=== PATIENT | female | born 1995 | race Caucasian/White ===

== ENCOUNTER 2017-10-14 01:37 | Emergency (ER) | payer OTHER ==
[~2017-10-14] VITALS: Ht 165.1 cm; Wt 72.6 kg
--- OUTSIDE RECORDS SUMMARY | 2017-10-14 01:43 | XMS REPORT ---
Author OTF Nguyen [facility] [place] eClinicalWorks Address Unknown Phone Unavailable Care Team Providers Care Hygiene Assistant Name Role Phone OTF DASILVA CP Unavailable Allergies, Adverse Reactions, Alerts Substance Reaction Event Type N.K.D.A. Info Not Available Non Drug Allergy Problems Problem Type Condition Code Onset Dates Condition Status Problem Irregular menses 626.4 Active Assessment Irregular menstrual bleeding N92.6 Active Problem Irregular menstrual bleeding N92.6 Active Assessment control counseling Z30.9 Active Medications No Known Medications Procedures Procedure Coding System Code Date Office Visit, Est Pt., Level 3 CPT-4 35254 Oct 09, 2015 DEPO PROVERA (150 MG/ML) CPT-4 J1050 Oct 09, 2015 URINE TEST CPT-4 71726 Oct 09, 2015 THER/PROPH/DIAG INJ, SC/IM CPT-4 59943 Oct 09, 2015 Vital Signs Date/Time: Oct 09, 2015 Temperature 98.2 F Weight 128.6 lbs Height 63.5 in BMI 22.42 Index Blood Pressure Diastolic 76 mmHg Blood Pressure Systolic 128 mmHg Cardiac Monitoring Heart Rate 96 bpm BMIPercentile 63.27 % Wt Percentile 58.93 % Results Name Result Date Reference Range Unit Abnormality Flag TEST, URINE (IN HOUSE) ----RESULTS NEGATIVE [id number] ----Lot # [id number] ----Control + [id number] ----Exp date [id number] Summary Purpose eClinicalWorks Submission
--- OUTSIDE RECORDS SUMMARY | 2017-10-14 01:43 | XMS REPORT ---
Author OTF Nguyen [facility] eClinicalWorks Address Unknown Phone Unavailable Care Team Providers Care Rivet Driver Name Role Phone OTF DASILVA CP Unavailable Allergies, Adverse Reactions, Alerts Substance Reaction Event Type N.K.D.A. Info Not Available Non Drug Allergy Problems Problem Type Condition ICD-9 Code Onset Dates Condition Status Assessment Irregular menses 626.4 Active Problem Irregular menses 626.4 Active Medications Medication Code System Code Instructions Start Date End Date Status Dosage Tri-Sprintec [facility] [address]-76 0.18/0.215/0.25 MG-35 MCG Orally Once a day Jul 15, 2015 1 tablet Procedures Procedure Coding System Code Date Office Visit, Est Pt., Level 3 CPT-4 59272 Jul 15, 2015 URINE TEST CPT-4 27683 Jul 15, 2015 CHORIONIC GONADOTROPIN ASSAY CPT-4 88923 Jul 15, 2015 Vital Signs Date/Time: Jul 15, 2015 Temperature 97.7 F BMIPercentile 76.63 % Weight 137.3 lbs Height 63.5 in BMI 23.94 Index Blood Pressure Diastolic 70 mmHg Blood Pressure Systolic 110 mmHg Cardiac Monitoring Heart Rate 90 bpm Wt Percentile 72.86 % Ht Percentile 39.11 % Results Name Result Date Reference Range Unit Abnormality Flag TEST, URINE (IN HOUSE) Summary Purpose eClinicalWorks Submission
--- OUTSIDE RECORDS SUMMARY | 2017-10-14 01:43 | XMS REPORT ---
Author BERNADETTE Curry Organization eClinicalWorks Address Unknown Phone Unavailable Care Team Providers Care Stage Driver Name Role Phone BERNADETTE KANG CP Unavailable Allergies, Adverse Reactions, Alerts Substance Reaction Event Type N.K.D.A. Info Not Available Non Drug Allergy Problems Problem Type Condition Code Onset Dates Condition Status Problem Menorrhagia with irregular cycle N92.1 Active Problem Irregular menstrual bleeding N92.6 Active Problem Abnormal uterine bleeding N93.9 Active Assessment Abnormal uterine bleeding N93.9 Active Medications Medication Code System Code Instructions Start Date End Date Status Dosage Promethazine HCl [facility] [address]-30 12.5 MG Orally every 6 hrs May 29, 2016 1-2 tablet as needed for nausea Ortho-Cyclen (28) [facility] [address]-33 0.25-35 MG-MCG Orally Once a day May 29, 2016 1 tab Procedures Procedure Coding System Code Date Office Visit, Est Pt., Level 3 CPT-4 04405 Aug 28, 2016 Vital Signs Date/Time: Aug 28, 2016 Cardiac Monitoring Heart Rate 70 bpm Weight 136 lbs Height 64 in Wt Percentile 66.81 % BMI 23.34 Index Blood Pressure Diastolic 74 mmHg Blood Pressure Systolic 112 mmHg BMIPercentile 69.06 % Results No Known Results Summary Purpose eClinicalWorks Submission
--- OUTSIDE RECORDS SUMMARY | 2017-10-14 01:43 | XMS REPORT ---
Author RIDGE Ndiaye [facility] [place] eClinicalWorks Address Unknown Phone Unavailable Care Team Providers Care Starcher And Tenter Range Feeder Name Role Phone RIDGE OCAMPO CP Unavailable Allergies No Known Allergies Problems Problem Type Condition Code Onset Dates Condition Status Problem Irregular menstrual bleeding N92.6 Active Assessment Menorrhagia with irregular cycle N92.1 Active Problem Menorrhagia with irregular cycle N92.1 Active Medications No Known Medications Results No Known Results Summary Purpose eClinicalWorks Submission
--- OUTSIDE RECORDS SUMMARY | 2017-10-14 01:43 | XMS REPORT ---
Author RIDGE Ndiaye [facility] eClinicalWorks Address Unknown Phone Unavailable Care Team Providers Care Profiler Operator Name Role Phone RIDGE OCAMPO CP Unavailable Allergies No Known Allergies Problems Problem Type Condition Code Onset Dates Condition Status Problem Irregular menstrual bleeding N92.6 Active Assessment Menorrhagia with irregular cycle N92.1 Active Problem Menorrhagia with irregular cycle N92.1 Active Medications No Known Medications Results No Known Results Summary Purpose eClinicalWorks Submission
--- OUTSIDE RECORDS SUMMARY | 2017-10-14 01:43 | XMS REPORT ---
Author SINCERE Chávez [facility] eClinicalWorks Address Unknown Phone Unavailable Care Team Providers Care Councilman Name Role Phone SINCERE NICHOLAS CP Unavailable Allergies No Known Allergies Problems Problem Type Condition Code Onset Dates Condition Status Problem Irregular menstrual bleeding N92.6 Active Assessment Encounter for Depo-Provera contraception Z30.42 Active Problem Menorrhagia with irregular cycle N92.1 Active Medications No Known Medications Procedures Procedure Coding System Code Date THER/PROPH/DIAG INJ, SC/IM CPT-4 79790 Jun 12, 2016 URINE TEST CPT-4 28022 Jun 12, 2016 DEPO PROVERA (150 MG/ML) CPT-4 J1050 Jun 12, 2016 Results No Known Results Summary Purpose eClinicalWorks Submission
--- OUTSIDE RECORDS SUMMARY | 2017-10-14 01:43 | XMS REPORT ---
Author Author RIDGE OCAMPO [facility] Address [address] [place] [address] Care Team Providers Care Dress Designer Name Role Phone RIDGE OCAMPO Unavailable PROBLEMS Type Condition ICD9-CM Code [id number] Code Onset Dates Condition Status SNOMED Code Problem Menorrhagia with irregular cycle N92.1 Active 545141355 Problem Irregular menstrual bleeding N92.6 Active [id number] ALLERGIES Unknown Allergies SOCIAL HISTORY No smoking Hx information available PLAN OF CARE VITAL SIGNS MEDICATIONS Unknown Medications RESULTS No Results PROCEDURES No Known procedures IMMUNIZATIONS No Known Immunizations
--- OUTSIDE RECORDS SUMMARY | 2017-10-14 01:43 | XMS REPORT | Continuity of Care Document ---
Author Author [facility] Organization [facility] Address Unknown Phone Unavailable Allergies Active Description Code Type Severity Reaction Onset Reported/Identified Relationship to Patient Clinical Status Yes NKANo Known Allergies NKA Miscellaneous Allergy Unknown N/ A 12/03/2006 Medications Problems Date Dx Coded Attending Type Code Diagnosis Diagnosed By 12/30/2016 KETTY HI, WILLIS Irwin Ot N93.9 ABNORMAL UTERINE AND VAGINAL BLEEDING, U 04/17/2017 WILLIS HDEZ MD Ot N93.9 ABNORMAL UTERINE AND VAGINAL BLEEDING, U 10/14/2017 WILLIS HDEZ MD Ot N93.9 ABNORMAL UTERINE AND VAGINAL BLEEDING, U Procedures Results Encounters ACCT No. Visit Date/Time Discharge Status Pt. Type Provider Facility Loc./Unit Complaint [id number] 01/03/2016 10:41:00 2015 23:59:59 CLS Outpatient WILLIS HDEZ MD [facility] RAD ABNORMAL UTERINE BLEEDING [id number] 10/14/2017 01:40:00 ACT Emergency SID HERZOG DO [facility] ER RT ANKLE PAIN
--- OUTSIDE RECORDS SUMMARY | 2017-10-14 01:43 | XMS REPORT ---
Author RIDGE Ndiaye [facility] eClinicalWorks Address Unknown Phone Unavailable Care Team Providers Care Operations Vice President Name Role Phone RIDGE OCAMPO CP Unavailable Allergies No Known Allergies Problems Problem Type Condition Code Onset Dates Condition Status Problem Irregular menstrual bleeding N92.6 Active Assessment Menorrhagia with irregular cycle N92.1 Active Problem Menorrhagia with irregular cycle N92.1 Active Medications No Known Medications Procedures Procedure Coding System Code Date BLOOD CLOT FACTOR VIII TEST CPT-4 00423 Jun 12, 2016 BLOOD CLOT FACTOR VIII TEST CPT-4 38865 Jun 12, 2016 THROMBOPLASTIN TIME, PARTIAL CPT-4 09336 Jun 12, 2016 COMPLETE CBC W/AUTO DIFF WBC CPT-4 13520 Jun 12, 2016 BLOOD CLOT FACTOR VIII TEST CPT-4 41585 Jun 12, 2016 VENIPUNCT, ROUTINE* CPT-4 05772 Jun 12, 2016 PROTHROMBIN TIME CPT-4 53846 Jun 12, 2016 Results No Known Results Summary Purpose eClinicalWorks Submission
--- OUTSIDE RECORDS SUMMARY | 2017-10-14 01:43 | XMS REPORT ---
Author RIDGE Ndiaye [facility] eClinicalWorks Address Unknown Phone Unavailable Care Team Providers Care Forming Roll Operator Name Role Phone RIDGE OCAMPO CP Unavailable Allergies, Adverse Reactions, Alerts Substance Reaction Event Type N.K.D.A. Info Not Available Non Drug Allergy Problems Problem Type Condition Code Onset Dates Condition Status Problem Irregular menstrual bleeding N92.6 Active Assessment Menorrhagia with irregular cycle N92.1 Active Problem Menorrhagia with irregular cycle N92.1 Active Medications Medication Code System Code Instructions Start Date End Date Status Dosage Ferrous Sulfate [facility] [address]-01 325 (65 Fe) MG Orally Once a day 1 tablet Ortho-Cyclen (28) [facility] [address]-42 0.25-35 MG-MCG Orally Once a day May 29, 2016 5 quwns6u, 7whjul5d, 8aphpn7g, 1gxbnu4t, then 1 tab until one week after bleeding stops Depo-Provera [facility] [address]-81 150 MG/ML Intramuscular 1 ml Promethazine HCl [facility] [address]-31 12.5 MG Orally every 6 hrs May 29, 2016 1-2 tablet as needed for nausea Procedures Procedure Coding System Code Date URINE TEST CPT-4 37196 May 29, 2016 Office Visit, Est Pt., Level 3 CPT-4 11094 May 29, 2016 Vital Signs Date/Time: May 29, 2016 Cardiac Monitoring Heart Rate 80 bpm Weight 135.7 lbs Height 64 in Wt Percentile 67.41 % BMI 23.29 Index Blood Pressure Diastolic 64 mmHg Blood Pressure Systolic 108 mmHg BMIPercentile 69.28 % Results No Known Results Summary Purpose eClinicalWorks Submission
--- OUTSIDE RECORDS SUMMARY | 2017-10-14 01:43 | XMS REPORT ---
Author BERNADETTE Curry Organization eClinicalWorks Address Unknown Phone Unavailable Care Team Providers Care Housing Management Officer Name Role Phone BERNADETTE KANG CP Unavailable Allergies, Adverse Reactions, Alerts Substance Reaction Event Type N.K.D.A. Info Not Available Non Drug Allergy Problems Problem Type Condition Code Onset Dates Condition Status Problem Irregular menstrual bleeding N92.6 Active Problem Menorrhagia with irregular cycle N92.1 Active Medications Medication Code System Code Instructions Start Date End Date Status Dosage Depo-Provera [facility] [address]-87 150 MG/ML Intramuscular 1 ml Results No Known Results Summary Purpose eClinicalWorks Submission
--- OUTSIDE RECORDS SUMMARY | 2017-10-14 01:43 | XMS REPORT ---
Author OTF Nguyen [facility] eClinicalWorks Address Unknown Phone Unavailable Care Team Providers Care Coffee Roaster Name Role Phone OTF DASILVA CP Unavailable Allergies, Adverse Reactions, Alerts Substance Reaction Event Type N.K.D.A. Info Not Available Non Drug Allergy Problems Problem Type Condition Code Onset Dates Condition Status Assessment Irregular menses 626.4 Active Problem Irregular menses 626.4 Active Medications Medication Code System Code Instructions Start Date End Date Status Dosage Ortho-Cyclen (28) [facility] [address]-82 0.25-35 MG-MCG Orally Once a day Aug 1 tablet Procedures Procedure Coding System Code Date Office Visit, Est Pt., Level 3 CPT-4 66741 Aug 22, 2015 Vital Signs Date/Time: Aug 22, 2015 Cardiac Monitoring Heart Rate 88 bpm Temperature 98.1 F Weight 130.1 lbs Wt Percentile 61.85 % Blood Pressure Diastolic 64 mmHg Blood Pressure Systolic 118 mmHg Results No Known Results Summary Purpose eClinicalWorks Submission
[2017-10-14] MEDS ORDERED: NORG1TAB6 (01:51)
[2017-10-14] MEDS ORDERED: RX-NAPROXEN (NAPROSYN) 250 MG TAB PPK#4 PO STA (02:04)
[2017-10-14] MEDS ORDERED: NAPR500T4 PO (02:12)
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
[2017-10-14 02:22] VITALS: BP 132/78
--- NOTE | 2017-10-14 07:17 | Diagnostic Imaging Report ---
INDICATION: Injury. Pain. Comparison: None Findings: 3 views of the right ankle are obtained. There is a minimally displaced oblique fracture through the mid to distal diaphysis of the fifth metatarsal with approximately 1-2 mm of dorsal displacement of the distal fragment. This is best seen on the lateral view. No additional fracture or osseous destructive process is seen. Alignment at the ankle joint appears preserved. There is a large amount of lateral soft tissue swelling noted. Impression: There is a minimally displaced distal fifth metatarsal fracture. Dictated by: Dictated on workstation # [id number]
== END 2017-10-14 02:22 | disposition home or self-care (01) ==
LOC: EDUNIT# 01:37 → ER 01:40
DX: S93.401A Sprain of unspecified ligament of right ankle, initial encounter (principal); T59.811A Toxic effect of smoke, accidental (unintentional), initial encounter; J70.5 Respiratory conditions due to smoke inhalation; X58.XXXA Exposure to other specified factors, initial encounter
CPT/HCPCS: 73610; 99283

== ENCOUNTER → 2018-07-08 | Outpatient (CLI) | payer MEDICAID ==
[~2018-07-08] MED LIST: NAPR-915 PO; NORG1TAB6
--- NOTE | 2018-07-08 12:33 | Diagnostic Imaging Report ---
PROCEDURE: US OB SINGLE FETUS <14 WKS. TECHNIQUE: Multiple real-time grayscale images were obtained over the gravid uterus in various projections. INDICATION: Size and dates. FINDINGS: Samuel intrauterine gestation measures 9 week 3 days for sonographic date of confinement 02/07/2019. Heart rate 176 beats per minute. Amniotic fluid volume unremarkable. No evidence for a betty-sac hemorrhage. Left ovary normal, the right could not be identified, no adnexal lesion or free fluid. IMPRESSION: Early Samuel viable IUP measures 9 weeks 3 days. No pathological finding identified. Dictated by: Dictated on workstation # [id number]
== END ==
LOC: RAD 10:51
PROVIDERS: ATTEND Family Medicine
DX: O26.841 Uterine size-date discrepancy, first trimester (principal); Z3A.09 9 weeks gestation of pregnancy
CPT/HCPCS: 76801

== ENCOUNTER 2019-02-01 18:34 | Inpatient (IN) | payer MEDICAID ==
[~2019-02-01] VITALS: Ht 165.1 cm; Wt 99.3 kg
--- OUTSIDE RECORDS SUMMARY | 2019-02-01 18:39 | XMS REPORT ---
Author Author LUZ LIND [facility] Address [address] [place] [address] Care Team Providers Care At Risk Specialist Name Role Phone LUZ LIND Unavailable PROBLEMS Type Condition ICD9-CM Code UVB76-KR Code Onset Dates Condition Status SNOMED Code Problem Non-seasonal allergic rhinitis due to pollen J30.1 Active 17067957 ALLERGIES No Known Allergies ENCOUNTERS Encounter Location Date Diagnosis [place] [address] [place] [id number] [place] [address] 28004- 2586 Nov, [place] [address] 07621- 7284 Oct, Second trimester Z34.92 [place] [address] [place] [id number] [place] [address] 26577- 4170 Sep, 18 weeks gestation of Z3A.18 [place] [address] [place] [id number] [place] [address] 08779- 1678 Sep, [place] [address] [place] [id number] [place] [address] 72609- 3620 Sep, 18 weeks gestation of Z3A.18 [place] [address] [place] [id number] [place] [address] 56152- 1399 Aug, Second trimester Z34.92 and Encounter for immunization Z23 [place] [address] [place] [id number] [place] [address] 56491- 9871 Jul, First trimester Z34.91 [place] [address] [place] [id number] [place] [address] 55795- 1704 Jun, Normal , first Z34.00 and care, first in first trimester Z34.01 [place] [address] [place] [id number] [place] [address] 36133- 8249 16 Jun, 2018 [place] [address] [place] [id number] [place] [address] 75083- 1441 14 Jun, 2018 First trimester Z34.91 and Mouth pain K13.79 [place] [address] [place] [id number] [place] [address] 07650- 2398 14 Jun, 2018 [place] [address] 60162- 2714 08 Jun, 2018 Encounter for test, result unknown Z32.00 [place] [address] 87644- 2789 13 May, 2018 control counseling Z30.09 and Sexually transmitted disease exposure Z20.2 [place] [address] [place] [id number] [place] [address] 52593- 1128 13 Jan, 2018 Acute bacterial conjunctivitis of right eye H10.31 ; Sore throat J02.9 ; Non-seasonal allergic rhinitis due to pollen J30.1 and Oral contraceptive pill surveillance Z30.41 [place] [address] [place] [id number] [place] [address] 56332- 9862 03 Feb, 2017 control counseling Z30.09 [place] [address] [place] [id number] [place] [address] 17417- 3113 28 Jan, 2017 [place] [address] [place] [id number] [place] [address] 02321- 6996 Aug, Abnormal uterine bleeding N93.9 [place] [address] [place] [id number] [place] [address] 70645- 8942 Aug, [place] [address] [place] [id number] [place] [address] 37330- 5733 20 Jul, 2016 Irregular menstrual bleeding N92.6 and Menorrhagia with irregular cycle N92.1 [place] [address] [place] [address] 99927- 7035 15 Jul, 2016 [place] [address] [place] [id number] [address] 0272 Jun, Menorrhagia with irregular cycle N92.1 [place] [address] [place] [id number] [place] [address] 58680- 1677 Jun, Menorrhagia with irregular cycle N92.1 [place] [address] [place] [id number] [place] [address] 97031- 2076 Jun, Encounter for Depo-Provera contraception Z30.42 [place] [address] [place] [id number] [place] [address] 94185- 4082 Jun, Menorrhagia with irregular cycle N92.1 [place] [address] [place] [id number] [place] [address] 71819- 4652 May, Menorrhagia with irregular cycle N92.1 [place] [address] [place] [id number] [place] [address] 16306- 3757 Apr, Irregular menses N92.6 [facility] [address] [place] [address] 95048 -8922 March, Conjunctivitis, unspecified conjunctivitis type, unspecified laterality H10.9 [place] [address] [place] [address] 95811- 8122 March, Encounter for Depo-Provera contraception Z30.42 [facility] [id number] [place] [address] 33266 -5436 Jan, Stye H00.019 [facility] [address] [place] [address] 44362- 3713 Jan, [place] [address] [place] [id number] [place] [address] 66863- 6357 Dec, Encounter for Depo-Provera contraception Z30.42 [place] [address] [place] [address] 83991- 3442 Oct, Irregular menstrual bleeding N92.6 and control counseling Z30.9 [place] [address] [facility] [id number] [address]- 5423 Aug, Irregular menses 626.4 [facility] [address] [facility] [id number] [address] Jul, Irregular menses 626.4 IMMUNIZATIONS No Known Immunizations SOCIAL HISTORY Never Assessed REASON FOR VISIT OB 4wk f/u, ob urine dip in second trimester , noticed more nose bleeds - instructed pt to try using a humidifier in the home--Joy Pollock RN PLAN OF CARE Activity Details Follow Up 4 Weeks Reason: VITAL SIGNS Height 64 in 2018-10-07 Weight 185 lbs 2018-10-07 Temperature 98.0 degrees Fahrenheit 2018-10-07 Heart Rate 80 bpm 2018-10-07 Respiratory Rate 18 2018-10-07 BMI 31.755 kg/m2 2018-10-07 Blood pressure systolic 112 mmHg 2018-10-07 Blood pressure diastolic 74 mmHg 2018-10-07 MEDICATIONS Medication Instructions Dosage Frequency Start Date End Date Duration Status Gummies/DHA & FA 0.4-32.5 MG Active RESULTS Name Result Date Reference Range UA OB DIP (IN HOUSE) 2018-10-07 Glucose Negative Protein Negative PROCEDURES Procedure Date Ordered Result Body Site URINE-NO MICRO Oct 07, 2018 INSTRUCTIONS MEDICATIONS ADMINISTERED No Known Medications MEDICAL (GENERAL) HISTORY Type Description Date Surgical History No Surgical history information
--- OUTSIDE RECORDS SUMMARY | 2019-02-01 18:39 | XMS REPORT ---
Author Author LUZ LIND [facility] Address [address] [place] [address] Care Team Providers Care Gis Instructor Name Role Phone LUZ LIND Unavailable PROBLEMS Type Condition ICD9-CM Code [id number] Code Onset Dates Condition Status SNOMED Code Problem Non-seasonal allergic rhinitis due to pollen J30.1 Active [id number] ALLERGIES No Information ENCOUNTERS Encounter Location Date Diagnosis [place] [address] 82670- 8775 05 Oct, 2018 [place] [address] 88842- 7500 2018 18 weeks gestation of Z3A.18 [place] [address] [place] [id number] [place] [address] 77212- 9169 Sep, [place] [address] 35351- 9914 Sep, 18 weeks gestation of Z3A.18 [place] [address] [place] [id number] [place] [address] 58808- 5750 10 Aug, 2018 Second trimester Z34.92 and Encounter for immunization Z23 [place] [address] [place] [id number] [place] [address] 27185- 6668 Jul, First trimester Z34.91 [place] [address] 46784- 6103 Jun, Normal , first Z34.00 and care, first in first trimester Z34.01 [place] [address] [place] [id number] [place] [address] 27401- 2897 Jun, [place] [address] [place] [address]- 4995 14 Jun, 2018 First trimester Z34.91 and Mouth pain K13.79 [place] [address] [place] [id number] [place] [address] 16213- 1435 14 Jun, 2018 [place] [address] [place] [id number] [place] [address] 78378- 0790 08 Jun, 2018 Encounter for test, result unknown Z32.00 [place] [address] 89221- 3817 13 May, 2018 control counseling Z30.09 and Sexually transmitted disease exposure Z20.2 [place] [address] 41627- 9326 13 Jan, 2018 Acute bacterial conjunctivitis of right eye H10.31 ; Sore throat J02.9 ; Non-seasonal allergic rhinitis due to pollen J30.1 and Oral contraceptive pill surveillance Z30.41 [place] [address] 73881- 9004 03 Feb, 2017 control counseling Z30.09 [place] [address] [place] [id number] [place] [address] 51774- 3599 Jan, [place] [address] [place] [id number] [place] [address] 76044- 6778 Aug, Abnormal uterine bleeding N93.9 [place] [address] [place] [id number] [place] [address] 75219- 2263 Aug, [place] [address] [place] [id number] [place] [address] 22636- 7781 Jul, Irregular menstrual bleeding N92.6 and Menorrhagia with irregular cycle N92.1 [place] [address] [place] [id number] [place] [address] 39357- 8936 Jul, [place] [address] [place] [id number] [place] [address] 74840- 4173 Jun, Menorrhagia with irregular cycle N92.1 [place] [address] [place] [address] 47172- 4147 Jun, Menorrhagia with irregular cycle N92.1 [place] [address] [place] [id number] [place] [address] 11780- 6634 Jun, Encounter for Depo-Provera contraception Z30.42 [place] [address] [place] [id number] [place] [address] 20583- 9857 Jun, Menorrhagia with irregular cycle N92.1 [place] [address] [place] [id number] [place] [address] 10059- 8580 May, Menorrhagia with irregular cycle N92.1 [place] [address] [place] [id number] [place] [address] 09457- 4070 Apr, Irregular menses N92.6 [facility] WALK [facility] [place] [address] [place] [id number] [place] [address] 23200 -7224 March, Conjunctivitis, unspecified conjunctivitis type, unspecified laterality H10.9 [place] [address] [place] [id number] [place] [address] 50932- 0527 March, Encounter for Depo-Provera contraception Z30.42 [facility] WALK [facility] [place] [address] [place] [id number] [place] [address] 55247 -7498 Jan, Stye H00.019 [place] [address] [place] [id number] [place] [address] 53504- 4524 Jan, [place] [address] [place] [id number] [place] [address] 28596- 5984 Dec, Encounter for Depo-Provera contraception Z30.42 [place] [address] [place] [id number] [place] [address] 72128- 2082 Oct, Irregular menstrual bleeding N92.6 and control counseling Z30.9 [place] [address] [place] [address] 67658- 3255 Aug, Irregular menses 626.4 [place] [address] [facility] [id number] [place] [address]- 3575 Jul, Irregular menses 626.4 IMMUNIZATIONS No Known Immunizations SOCIAL HISTORY Never Assessed REASON FOR VISIT U/S OB >14 weeks Walk-in ultrasound. A.[employer] RDMS RVT PLAN OF CARE Activity Details Pending Test Ultrasound : OB > 14 WEEKS COMPLETE (IN-HOUSE) VITAL SIGNS MEDICATIONS Unknown Medications RESULTS No Results PROCEDURES Procedure Date Ordered Result Body Site OB US >/=14 WKS, SNGL FETUS Sep 17, 2018 INSTRUCTIONS MEDICATIONS ADMINISTERED No Known Medications
--- OUTSIDE RECORDS SUMMARY | 2019-02-01 18:40 | XMS REPORT ---
Author Author LUZ LIND [facility] Address [address] [place] [address] Care Team Providers Care Car Whacker Name Role Phone LUZ LIND Unavailable PROBLEMS Type Condition ICD9-CM Code BFI03-NR Code Onset Dates Condition Status SNOMED Code Problem Non-seasonal allergic rhinitis due to pollen J30.1 Active 39293162 ALLERGIES No Known Allergies ENCOUNTERS Encounter Location Date Diagnosis [place] [address] 49647- 0439 05 Oct, 2018 [place] [address] 97579- 5553 Sep, [place] [address] 40172- 4459 Sep, [place] [address] 31921- 5327 Sep, 18 weeks gestation of Z3A.18 [place] [address] [place] [id number] [place] [address] 47480- 0903 10 Aug, 2018 Second trimester Z34.92 and Encounter for immunization Z23 [place] [address] [place] [id number] [place] [address] 42912- 2457 Jul, First trimester Z34.91 [place] [address] [place] [id number] [place] [address] 13426- 1196 Jun, Normal , first Z34.00 and care, first in first trimester Z34.01 [place] [address] [place] [id number] [place] [address] 69405- 6244 16 Jun, 2018 [place] [address] 88928- 5624 Jun, First trimester Z34.91 and Mouth pain K13.79 [place] [address] [place] [id number] [place] [address] 36101- 1230 14 Jun, 2018 [place] [address] [place] [id number] [place] [address] 72439- 4664 08 Jun, 2018 Encounter for test, result unknown Z32.00 [place] [address] 25616- 8751 13 May, 2018 control counseling Z30.09 and Sexually transmitted disease exposure Z20.2 [place] [address] 87120- 9650 Jan, Acute bacterial conjunctivitis of right eye H10.31 ; Sore throat J02.9 ; Non-seasonal allergic rhinitis due to pollen J30.1 and Oral contraceptive pill surveillance Z30.41 [place] [address] 48655- 6625 Feb, control counseling Z30.09 [place] [address] [place] [id number] [place] [address] 14677- 3362 Jan, [place] [address] 41052- 5408 Aug, Abnormal uterine bleeding N93.9 [place] [address] [place] [id number] [place] [address] 86792- 0218 Aug, [place] [address] 15063- 5421 Jul, Irregular menstrual bleeding N92.6 and Menorrhagia with irregular cycle N92.1 [place] [address] 53782- 7788 Jul, [place] [address] [place] [id number] [place] [address] 68784- 9403 Jun, Menorrhagia with irregular cycle N92.1 [place] [address] [place] [address]- 8954 Jun, Menorrhagia with irregular cycle N92.1 [place] [address] [place] [id number] [place] [address] 27471- 9332 Jun, Encounter for Depo-Provera contraception Z30.42 [place] [address] [place] [id number] [place] [address] 95857- 2181 Jun, Menorrhagia with irregular cycle N92.1 [place] [address] [place] [id number] [place] [address] 65063- 8675 May, Menorrhagia with irregular cycle N92.1 [place] [address] [place] [id number] [place] [address] 44975- 0904 Apr, Irregular menses N92.[address] [facility] WALK IN [facility] [address] [place] [id number] [place] [address] 93888 -6968 March, Conjunctivitis, unspecified conjunctivitis type, unspecified laterality H10.9 [place] [address] [place] [id number] [place] [address] 47574- 0941 March, Encounter for Depo-Provera contraception Z30.[address] [facility] WALK IN [facility] [address] [place] [id number] [place] [address] 29178 -6785 Jan, Stye H00.019 [place] [address] [place] [id number] [place] [address] 52872- 6577 Jan, [place] [address] [place] [id number] [place] [address] 86715- 5187 Dec, Encounter for Depo-Provera contraception Z30.42 [place] [address] [place] [id number] [place] [address] 58568- 0088 Oct, Irregular menstrual bleeding N92.6 and control counseling Z30.9 [place] [address] [place] [id number] [place] [address] 20096- 9957 Aug, Irregular menses 626.4 [place] [address] [place] [id number] [address]- 5037 Jul, Irregular menses 626.4 IMMUNIZATIONS No Known Immunizations SOCIAL HISTORY Never Assessed REASON FOR VISIT OB 4wk f/u Christian GALLEGOS, OB dip Christian GALLEGOS PLAN OF CARE Activity Details Follow Up 4 Weeks Reason: Pending Test UA OB DIP (IN HOUSE) VITAL SIGNS Height 64 in 2018-09-09 Weight 173.7 lbs 2018-09-09 Temperature 98.1 degrees Fahrenheit 2018-09-09 Heart Rate 93 bpm 2018-09-09 Respiratory Rate 18 2018-09-09 BMI 29.816 kg/m2 2018-09-09 Blood pressure systolic 110 mmHg 2018-09-09 Blood pressure diastolic 72 mmHg 2018-09-09 MEDICATIONS Medication Instructions Dosage Frequency Start Date End Date Duration Status Gummies/DHA & FA 0.4-32.5 MG Active RESULTS No Results PROCEDURES Procedure Date Ordered Result Body Site URINE-NO MICRO Sep 09, 2018 OB US >/=14 WKS, SNGL FETUS Sep 09, 2018 INSTRUCTIONS MEDICATIONS ADMINISTERED No Known Medications
--- OUTSIDE RECORDS SUMMARY | 2019-02-01 18:40 | XMS REPORT ---
Author Author LUZ LIND [facility] Address [address] [place] [address] Care Team Providers Care Practical Ministries Professor Name Role Phone LUZ LIND Unavailable PROBLEMS Type Condition ICD9-CM Code BGC12-FC Code Onset Dates Condition Status SNOMED Code Problem Non-seasonal allergic rhinitis due to pollen J30.1 Active 33994796 ALLERGIES No Information ENCOUNTERS Encounter Location Date Diagnosis [place] [address] 85581- 0976 Oct, [place] [address] 76879- 9037 Sep, [place] [address] 41179- 3942 Sep, 18 weeks gestation of Z3A.18 [place] [address] 50316- 1168 10 Aug, 2018 Second trimester Z34.92 and Encounter for immunization Z23 [place] [address] [place] [id number] [place] [address] 24609- 5323 Jul, First trimester Z34.91 [place] [address] [place] [id number] [place] [address] 31801- 5640 Jun, Normal , first Z34.00 and care, first in first trimester Z34.01 [place] [address] 84012- 0200 Jun, [place] [address] [place] [id number] [place] [address] 23889- 4148 Jun, First trimester Z34.91 and Mouth pain K13.79 [place] [address] [id number] [address]- 0162 14 Jun, 2018 [place] [address] [place] [id number] [place] [address] 17399- 1569 08 Jun, 2018 Encounter for test, result unknown Z32.00 [place] [address] [place] [id number] [place] [address] 64277- 3111 13 May, 2018 control counseling Z30.09 and Sexually transmitted disease exposure Z20.2 [place] [address] [place] [id number] [place] [address] 14733- 7696 13 Jan, 2018 Acute bacterial conjunctivitis of right eye H10.31 ; Sore throat J02.9 ; Non-seasonal allergic rhinitis due to pollen J30.1 and Oral contraceptive pill surveillance Z30.41 [place] [address] [place] [id number] [place] [address] 25756- 8690 03 Feb, 2017 control counseling Z30.09 [place] [address] [place] [id number] [place] [address] 62728- 0375 28 Jan, 2017 [place] [address] [place] [id number] [place] [address] 26339- 2544 Aug, Abnormal uterine bleeding N93.9 [place] [address] [place] [id number] [place] [address] 24636- 4245 Aug, [place] [address] [place] [id number] [place] [address] 73276- 6719 Jul, Irregular menstrual bleeding N92.6 and Menorrhagia with irregular cycle N92.1 [place] [address] [place] [address] 87733- 5002 15 Jul, 2016 [place] [address] [place] [id number] [place] [address] 49407- 0941 Jun, Menorrhagia with irregular cycle N92.1 [place] [address] [place] [address] 48790- 2710 Jun, Menorrhagia with irregular cycle N92.1 [place] [address] [address]- 6139 Jun, Encounter for Depo-Provera contraception Z30.42 [facility] [address] [place] [id number] [place] [address] 86977- 1315 Jun, Menorrhagia with irregular cycle N92.1 [place] [address] [place] [id number] [place] [address] 53033- 0478 May, Menorrhagia with irregular cycle N92.1 [place] [address] [place] [id number] [place] [address] 84857- 2305 Apr, Irregular menses N92.6 [facility] WALK IN [facility] [address] [place] [id number] [place] [address] 87800 -8494 March, Conjunctivitis, unspecified conjunctivitis type, unspecified laterality H10.9 [place] [address] [place] [id number] [place] [address] 63332- 9314 March, Encounter for Depo-Provera contraception Z30.42 [facility] IN [facility] [id number] [place] [address] 52321 -2123 Jan, Stye H00.019 [place] [address] [place] [id number] [place] [address] 30734- 6970 Jan, [facility] [id number] [place] [address] 08526- 0067 Dec, Encounter for Depo-Provera contraception Z30.42 [place] [id number] [place] [address] 55654- 8569 Oct, Irregular menstrual bleeding N92.6 and control counseling Z30.9 [place] [address] [place] [id number] [place] [address] 22484- 3274 Aug, Irregular menses 626.4 [place] [id number] [place] [address] 98153- 5167 Jul, Irregular menses 626.4 IMMUNIZATIONS No Known Immunizations SOCIAL HISTORY Never Assessed REASON FOR VISIT Patient Questions PLAN OF CARE VITAL SIGNS MEDICATIONS Unknown Medications RESULTS No Results PROCEDURES No Known procedures INSTRUCTIONS MEDICATIONS ADMINISTERED No Known Medications
--- OUTSIDE RECORDS SUMMARY | 2019-02-01 18:40 | XMS REPORT ---
Author Author LUZ LIND [facility] Address [address] [place] [address] Care Team Providers Care Past Due Accounts Clerk Name Role Phone LUZ LIND Unavailable PROBLEMS Type Condition ICD9-CM Code [id number] Code Onset Dates Condition Status SNOMED Code Problem Non-seasonal allergic rhinitis due to pollen J30.1 Active 17367391 ALLERGIES No Information ENCOUNTERS Encounter Location Date Diagnosis [place] [address] [address] Sep, [place] [address] [address] Aug, Second trimester Z34.92 and Encounter for immunization Z23 [place] [address] [address] [place] [id number] [place] [address] 20930- 3342 Jul, First trimester Z34.91 [place] [address] 05779- 3095 Jun, Normal , first Z34.00 and care, first in first trimester Z34.01 [place] [address] [place] [id number] [place] [address] 01601- 7359 Jun, [place] [address] [place] [id number] [place] [address] 04375- 5242 Jun, First trimester Z34.91 and Mouth pain K13.79 [place] [address] 11047- 8318 Jun, [place] [address] [place] [id number] [place] [address] 54444- 3105 Jun, Encounter for test, result unknown Z32.00 [place] [address] [place] [id number] [place] [address] 79535- 9376 13 May, 2018 control counseling Z30.09 and Sexually transmitted disease exposure Z20.2 [place] [address] [place] [id number] [place] [address] 55409- 7928 13 Jan, 2018 Acute bacterial conjunctivitis of right eye H10.31 ; Sore throat J02.9 ; Non-seasonal allergic rhinitis due to pollen J30.1 and Oral contraceptive pill surveillance Z30.41 [place] [address] [place] [id number] [place] [address] 54991- 6714 03 Feb, 2017 control counseling Z30.09 [place] [address] 50991- 5969 28 Jan, 2017 [place] [address] [place] [id number] [place] [address] 34674- 5904 Aug, Abnormal uterine bleeding N93.9 [place] [address] [place] [id number] [place] [address] 20409- 2809 Aug, [place] [address] [place] [id number] [place] [address] 15329- 7838 Jul, Irregular menstrual bleeding N92.6 and Menorrhagia with irregular cycle N92.1 [place] [address] [place] [id number] [place] [address] 63712- 1956 Jul, [place] [address] [place] [id number] [place] [address] 38618- 9916 Jun, Menorrhagia with irregular cycle N92.1 [place] [address] [place] [id number] [place] [address] 75699- 1000 Jun, Menorrhagia with irregular cycle N92.1 [place] [address] [place] [id number] [place] [address] 73780- 8118 Jun, Encounter for Depo-Provera contraception Z30.42 [place] [address] [place] [id number] [place] [address] 37778- 9104 04 Jun, 2016 Menorrhagia with irregular cycle N92.1 [place] [address] [place] [address] 93672- 0487 May, Menorrhagia with irregular cycle N92.1 [place] [address] [place] [address] 47900- 9504 Apr, Irregular menses N92.6 [facility] [address] [place] [id number] [place] [address] 02847 -3676 March, Conjunctivitis, unspecified conjunctivitis type, unspecified laterality H10.9 [place] [address] [place] [id number] [place] [address] 87507- 2313 March, Encounter for Depo-Provera contraception Z30.42 [facility] [address] [place] [id number] [place] [address] 78426 -7796 Jan, Stye H00.019 [place] [address] [place] [id number] [place] [address] 48391- 9901 Jan, [place] [address] [place] [id number] [place] [address] 20481- 5530 Dec, Encounter for Depo-Provera contraception Z30.42 [place] [address] [place] [id number] [place] [address] 78049- 6446 Oct, Irregular menstrual bleeding N92.6 and control counseling Z30.9 [place] [address] [place] [address] 05456- 3345 Aug, Irregular menses 626.4 [place] [address] [place] [id number] [place] [address] 88366- 6870 Jul, Irregular menses 626.4 IMMUNIZATIONS Vaccine Route Administration Date Status FLULAVAL QUAD 0.5ML (6 MO & UP) 2018 IM Intramuscular Aug 12, 2018 Administered SOCIAL HISTORY Never Assessed REASON FOR VISIT OB 4wk f/u , urine OB dip , flu shot -awoods PLAN OF CARE Activity Details Follow Up 4 Weeks Reason: Pending Test UA OB DIP (IN HOUSE) VITAL SIGNS Height 64 in 2018-08-12 Weight 165.9 lbs 2018-08-12 Temperature 98.1 degrees Fahrenheit 2018-08-12 Heart Rate 84 bpm 2018-08-12 Respiratory Rate 18 2018-08-12 BMI 28.477 kg/m2 2018-08-12 Blood pressure systolic 112 mmHg 2018-08-12 Blood pressure diastolic 68 mmHg 2018-08-12 MEDICATIONS Medication Instructions Dosage Frequency Start Date End Date Duration Status Gummies/DHA & FA 0.4-32.5 MG Active RESULTS No Results PROCEDURES Procedure Date Ordered Result Body Site URINE-NO MICRO Aug 12, 2018 SINGLE IMMUNIZATION ADMIN Aug 12, 2018 FLULAVAL QUAD 0.5ML (6 MO AND UP) 2017Aug 12, 2018 INSTRUCTIONS MEDICATIONS ADMINISTERED No Known Medications
--- OUTSIDE RECORDS SUMMARY | 2019-02-01 18:40 | XMS REPORT ---
Author Author LUZ LIND [facility] Address [address] [place] [address] Care Team Providers Care Car Park Attendant Name Role Phone LUZ LIND Unavailable PROBLEMS Type Condition ICD9-CM Code [id number] Code Onset Dates Condition Status SNOMED Code Problem Non-seasonal allergic rhinitis due to pollen J30.1 Active 53538377 ALLERGIES No Known Allergies ENCOUNTERS Encounter Location Date Diagnosis [place] [address] [address] 2908 Aug, [place] [address] 19665- 5526 Jul, First trimester Z34.91 [place] [address] 28469- 5687 Jun, Normal , first Z34.00 and care, first in first trimester Z34.01 [place] [address] [address] [place] [id number] [place] [address] 53283- 9374 16 Jun, 2018 [place] [address] 41013- 6736 Jun, First trimester Z34.91 and Mouth pain K13.79 [place] [address] 79613- 8916 Jun, [place] [address] 11817- 6907 08 Jun, 2018 Encounter for test, result unknown Z32.00 [place] [address] 66426- 9355 13 May, 2018 control counseling Z30.09 and Sexually transmitted disease exposure Z20.2 [place] [address], [place] [address] 4[address] 13 Jan, 2018 Acute bacterial conjunctivitis of right eye H10.31 ; Sore throat J02.9 ; Non-seasonal allergic rhinitis due to pollen J30.1 and Oral contraceptive pill surveillance Z30.41 [place] [address] [place] [address] 13606- 9077 03 Feb, 2017 control counseling Z30.09 [place] [address] [place] [id number] [place] [address] 56595- 9104 28 Jan, 2017 [place] [address] [place] [id number] [place] [address] 08944- 6048 Aug, Abnormal uterine bleeding N93.9 [place] [address] [place] [id number] [place] [address] 70194- 3418 Aug, [place] [address] [place] [id number] [place] [address] 94956- 5552 Jul, Irregular menstrual bleeding N92.6 and Menorrhagia with irregular cycle N92.1 [place] [address] [place] [id number] [place] [address] 41989- 7942 15 Jul, 2016 [place] [address] [place] [id number] [place] [address] 72568- 3656 Jun, Menorrhagia with irregular cycle N92.1 [place] [address] [place] [id number] [place] [address] 28650- 4631 Jun, Menorrhagia with irregular cycle N92.1 [place] [address] [place] [address] 99205- 0617 10 Jun, 2016 Encounter for Depo-Provera contraception Z30.42 [place] [address] [place] [id number] [place] [address] 76112- 6750 Jun, Menorrhagia with irregular cycle N92.1 [place] [address] [place] [id number] [place] [address] 70597- 7608 May, Menorrhagia with irregular cycle N92.1 [place] [address], [place] [address]- 8867 Apr, Irregular menses N92.6 [facility] [address] [place] [address] 57490 -2211 March, Conjunctivitis, unspecified conjunctivitis type, unspecified laterality H10.9 [place] [address] [place] [id number] [place] [address] 20322- 4778 March, Encounter for Depo-Provera contraception Z30.42 [facility] [address] [place] [address] Jan, Stye H00.019 [place] [address] [place] [id number] [place] [address] 00285- 8272 Jan, [place] [address] [place] [id number] [place] [address] 84371- 3794 Dec, Encounter for Depo-Provera contraception Z30.42 [place] [address] [place] [id number] [place] [address] 76187- 5596 Oct, Irregular menstrual bleeding N92.6 and control counseling Z30.9 [place] [address] [place] [address] 34812- 3572 Aug, Irregular menses 626.4 [place] [address] [place] [address] 28848- 2049 Jul, Irregular menses 626.4 IMMUNIZATIONS No Known Immunizations SOCIAL HISTORY Never Assessed REASON FOR VISIT OB-intake -- adrianne smith PLAN OF CARE Activity Details Follow Up 4 Weeks Reason: Pending Test GC/CHLAM PROBE (STATE) Pending Test SYPHILIS (STATE) Pending Test TRICHOMONAS (IN HOUSE) Pending Test HIV (STATE) Pending Test HEP B SURFACE ANTIGEN (STATE) Pending Test BACTERIAL VAGINOSIS (IN HOUSE) Pending Test CBC Pending Test BLOOD TPYE/RH FACTOR Pending Test ANTIBODY SCREEN Pending Test TSH Pending Test RUBELLA IMMUNE STATUS Pending Test CULTURE, URINE Pending Test CULTURE, GENITAL Pending Test SUREPATH PAP RFX HPV mRNA E6/E7 Pending Test PAP REFLEX TO HPV IF ASCUS Pending Test Ultrasound : OB, Early <14 WEEKS Future/Pending Procedure ROUTINE VENIPUNCTURE VITAL SIGNS Height 64 in 2018-06-24 Weight 152.0 lbs 2018-06-24 Temperature 98.0 degrees Fahrenheit 2018-06-24 BMI 26.091 kg/m2 2018-06-24 Blood pressure systolic 116 mmHg 2018-06-24 Blood pressure diastolic 70 mmHg 2018-06-24 MEDICATIONS Medication Instructions Dosage Frequency Start Date End Date Duration Status Gummies/DHA & FA 0.4-32.5 MG Active RESULTS Name Result Date Reference Range URINE DRUG SCREEN (IN HOUSE) 2018-06-24 Lot # [id number] Exp date 02/2019 Control + COCAINE negative AMPH Negative MTD Negative THC POSITIVE OPIATE negative BENZO negative PCP negative BAR negative OXY negative MAMP negative BUP negative MDMA negative TCA negative UA LONG DIP (IN HOUSE) 2018-06-24 Lot # [id number] Exp date 02/2019 Clarity clear Color yellow Odor no GLU neg MEREDITH neg KET neg SG 1.025 BLO neg pH 7.0 Protein 1+ URO 0.2 NIT neg CARO neg Lot # Exp date PROCEDURES Procedure Date Ordered Result Body Site BLOOD TYPING, ABO Jun 24, 2018 BLOOD TYPING, RH (D) Jun 24, 2018 SPECIMEN HANDLING Jun 24, 2018 No Charge Jun 24, 2018 DRUG TEST PRSMV DIR OPT OBS Jun 24, 2018 RBC ANTIBODY SCREEN Jun 24, 2018 TRICHOMONAS ASSAY W/OPTIC Jun 24, 2018 COMPLETE CBC W/AUTO DIFF WBC Jun 24, 2018 CULTURE, BACTERIA, OTHER Jun 24, 2018 URINALYSIS, AUTO, W/O SCOPE Jun 24, 2018 ASSAY THYROID STIM HORMONE Jun 24, 2018 RUBELLA ANTIBODY Jun 24, 2018 URINE CULTURE/COLONY COUNT Jun 24, 2018 VENIPUNCT, ROUTINE* Jun 24, 2018 INSTRUCTIONS MEDICATIONS ADMINISTERED No Known Medications
--- OUTSIDE RECORDS SUMMARY | 2019-02-01 18:40 | XMS REPORT ---
Author Author BERNADETTE KANG Organization [facility] Address [address] [place] [address] Care Team Providers Care Appeals Nurse Name Role Phone BERNADETTE KANG Unavailable PROBLEMS Type Condition ICD9-CM Code XCK36-MY Code Onset Dates Condition Status SNOMED Code Problem Non-seasonal allergic rhinitis due to pollen J30.1 Active [id number] ALLERGIES No Information ENCOUNTERS Encounter Location Date Diagnosis [place] [address] [address]- 3327 Aug, [place] [address] 88363- 2536 Jul, First trimester Z34.91 [place] [address] 98808- 8716 Jun, Normal , first Z34.00 and care, first in first trimester Z34.01 [place] [address] [place] [id number] [place] [address] 44795- 3988 16 Jun, 2018 [place] [address] [place] [id number] [place] [address] 96514- 3781 Jun, First trimester Z34.91 and Mouth pain K13.79 [place] [address] [place] [id number] [place] [address] 19590- 6068 Jun, [place] [address] 91090- 0822 08 Jun, 2018 Encounter for test, result unknown Z32.00 [place] [address] [place] [id number] [place] [address] 24433- 4661 13 May, 2018 control counseling Z30.09 and Sexually transmitted disease exposure Z20.2 [place] [address], [place] [address]- 5689 13 Jan, 2018 Acute bacterial conjunctivitis of right eye H10.31 ; Sore throat J02.9 ; Non-seasonal allergic rhinitis due to pollen J30.1 and Oral contraceptive pill surveillance Z30.41 [place] [address] [place] [address] [address]- 7475 03 Feb, 2017 control counseling Z30.09 [place] [address] [place] [id number] [place] [address] 44871- 9413 28 Jan, 2017 [place] [address] [place] [id number] [place] [address] 91793- 9321 Aug, Abnormal uterine bleeding N93.9 [place] [address] [place] [id number] [place] [address] 09911- 1517 Aug, [place] [address] [place] [id number] [place] [address] 52408- 4910 Jul, Irregular menstrual bleeding N92.6 and Menorrhagia with irregular cycle N92.1 [place] [address] [place] [id number] [place] [address] 84334- 3822 15 Jul, 2016 [place] [address] [place] [id number] [place] [address] 44204- 7230 Jun, Menorrhagia with irregular cycle N92.1 [place] [address] [place] [id number] [place] [address] 03810- 5283 Jun, Encounter for Depo-Provera contraception Z30.42 [place] [address] [place] [address] 06688- 3539 Jun, Menorrhagia with irregular cycle N92.1 [place] [address] [place] [id number] [place] [address] 33824- 6330 Jun, Menorrhagia with irregular cycle N92.1 [place] [address] [place] [id number] [place] [address] 28769- 3674 May, Menorrhagia with irregular cycle N92.1 [place] [address] [place] [address] 95999- 8453 Apr, Irregular menses N92.6 [facility] [address] [place] [id number] [place] [address] 71862 -2764 March, Conjunctivitis, unspecified conjunctivitis type, unspecified laterality H10.9 [place] [address] [place] [id number] [place] [address] 02478- 3717 March, Encounter for Depo-Provera contraception Z30.42 [facility] [address] [place] [id number] [place] [address] 47852 -0381 Jan, Stye H00.019 [place] [address] [place] [id number] [place] [address] 87313- 4567 Jan, [facility] [address] [place] [id number] [place] [address] 15483- 3865 Dec, Encounter for Depo-Provera contraception Z30.42 [place] [address] [place] [id number] [place] [address] 39052- 5718 Oct, Irregular menstrual bleeding N92.6 and control counseling Z30.9 [place] [address] [place] [id number] [place] [address] 41995- 6024 Aug, Irregular menses 626.4 [place] [address] [place] [id number] [place] [address] 99906- 1587 Jul, Irregular menses 626.4 IMMUNIZATIONS No Known Immunizations SOCIAL HISTORY Never Assessed REASON FOR VISIT Triage--tcuppettRN PLAN OF CARE VITAL SIGNS MEDICATIONS Unknown Medications RESULTS No Results PROCEDURES No Known procedures INSTRUCTIONS MEDICATIONS ADMINISTERED No Known Medications
--- OUTSIDE RECORDS SUMMARY | 2019-02-01 18:40 | XMS REPORT ---
Author Author BERNADETTE KANG Organization [facility] Address [address] [place] [address] Care Team Providers Care Mixer Operator Hot Metal Name Role Phone BERNADETTE KANG Unavailable PROBLEMS Type Condition ICD9-CM Code QCJ78-KE Code Onset Dates Condition Status SNOMED Code Problem Non-seasonal allergic rhinitis due to pollen J30.1 Active 15836265 ALLERGIES No Known Allergies ENCOUNTERS Encounter Location Date Diagnosis [place] [address] 81068- 2653 Jul, [place] [address] 19714- 6537 Jun, Normal , first Z34.00 and care, first in first trimester Z34.01 [place] [address] 99504- 9752 16 Jun, 2018 [place] [address] 07656- 2131 Jun, First trimester Z34.91 and Mouth pain K13.79 [place] [address] 60545- 7808 Jun, [place] [address] 75970- 9012 08 Jun, 2018 Encounter for test, result unknown Z32.00 [place] [address] 63212- 7769 13 May, 2018 control counseling Z30.09 and Sexually transmitted disease exposure Z20.2 [place] [address] 56031- 3205 13 Jan, 2018 Acute bacterial conjunctivitis of right eye H10.31 ; Sore throat J02.9 ; Non-seasonal allergic rhinitis due to pollen J30.1 and Oral contraceptive pill surveillance Z30.41 [place] [address] [place] [id number] [place] [address] 84386- 4287 03 Feb, 2017 control counseling Z30.09 [place] [address] [place] [id number] [place] [address] 05681- 6252 Jan, [place] [address] 89177- 0215 Aug, Abnormal uterine bleeding N93.9 [place] [address] 52414- 6402 Aug, [place] [address] 28768- 5067 Jul, Irregular menstrual bleeding N92.6 and Menorrhagia with irregular cycle N92.1 [place] [address] 91911- 9671 Jul, [place] [address] 79932- 5849 Jun, Menorrhagia with irregular cycle N92.1 [place] [address] [place] [id number] [place] [address] 52438- 3166 Jun, Menorrhagia with irregular cycle N92.1 [place] [address] [place] [id number] [place] [address] 17454- 6447 Jun, Encounter for Depo-Provera contraception Z30.42 [place] [address] [place] [id number] [place] [address] 05193- 2769 Jun, Menorrhagia with irregular cycle N92.1 [place] [address] 01867- 9377 May, Menorrhagia with irregular cycle N92.1 [place] [address] [place] [id number] [place] [address] 84877- 1697 Apr, Irregular menses N92.6 [facility] [address], [place] [address] March, Conjunctivitis, unspecified conjunctivitis type, unspecified laterality H10.9 [place] [address] March, Encounter for Depo-Provera contraception Z30.42 [facility] [address] [place] [id number] [place] [address] 50821 -0939 Jan, Stye H00.019 [place] [address] [place] [id number] [place] [address] 69606- 6943 Jan, [place] [address] [place] [id number] [place] [address] 002014- 7774 Dec, Encounter for Depo-Provera contraception Z30.42 [place] [address] [place] [id number] [place] [address] 02226- 8460 Oct, Irregular menstrual bleeding N92.6 and control counseling Z30.9 [place] [address] [place] [address] 79637- 3012 Aug, Irregular menses 626.4 [place] [address] [place] [address] 71985- 1257 Jul, Irregular menses 626.4 IMMUNIZATIONS No Known Immunizations SOCIAL HISTORY Never Assessed REASON FOR VISIT Mouth sore x 3 days , patient states she is 6 weeks pregant with out any care yet -- adrianne smith PLAN OF CARE Activity Details Follow Up appt for OB intake scheduled Reason: VITAL SIGNS Height 64 in 2018-06-16 Weight 158.6 lbs 2018-06-16 Temperature 98.7 degrees Fahrenheit 2018-06-16 BMI 27.22 kg/m2 2018-06-16 Blood pressure systolic 110 mmHg 2018-06-16 Blood pressure diastolic 68 mmHg 2018-06-16 MEDICATIONS Medication Instructions Dosage Frequency Start Date End Date Duration Status Gummies/DHA & FA 0.4-32.5 MG Active RESULTS No Results PROCEDURES No Known procedures INSTRUCTIONS MEDICATIONS ADMINISTERED No Known Medications
--- OUTSIDE RECORDS SUMMARY | 2019-02-01 18:40 | XMS REPORT ---
Author Author LUZ LIND [facility] Address [address] [place] [address] Care Team Providers Care Imaging Science Professor Name Role Phone LUZ LIND Unavailable PROBLEMS Type Condition ICD9-CM Code TXT84-TH Code Onset Dates Condition Status SNOMED Code Problem Non-seasonal allergic rhinitis due to pollen J30.1 Active 99502126 ALLERGIES No Information ENCOUNTERS Encounter Location Date Diagnosis [place] [address] [address] Aug, [place] [address] 21056[address] 5744 Jul, First trimester Z34.91 [place] [address] 83909- 2949 Jun, Normal , first Z34.00 and care, first in first trimester Z34.01 [place] [address] [place] [id number] [place] [address] 87497- 2246 16 Jun, 2018 [place] [address] [place] [id number] [place] [address] 99058- 4092 Jun, First trimester Z34.91 and Mouth pain K13.79 [place] [address] 23193- 0521 Jun, [place] [address] 09092- 7342 08 Jun, 2018 Encounter for test, result unknown Z32.00 [place] [address] 29233- 0337 13 May, 2018 control counseling Z30.09 and Sexually transmitted disease exposure Z20.2 [place] [address] [address] 13 Jan, 2018 Acute bacterial conjunctivitis of right eye H10.31 ; Sore throat J02.9 ; Non-seasonal allergic rhinitis due to pollen J30.1 and Oral contraceptive pill surveillance Z30.41 [place] [address] [address] 03 Feb, 2017 control counseling Z30.09 [place] [address] [place] [id number] [place] [address] 85407- 1344 28 Jan, 2017 [place] [address] [place] [id number] [place] [address] 96398- 2496 Aug, Abnormal uterine bleeding N93.9 [place] [address] [place] [id number] [place] [address] 71369- 0316 Aug, [place] [address] [place] [id number] [place] [address] 23094- 7974 Jul, Irregular menstrual bleeding N92.6 and Menorrhagia with irregular cycle N92.1 [place] [address] [place] [id number] [place] [address] 48910- 9062 15 Jul, 2016 [place] [address] [place] [id number] [place] [address] 21098- 2376 Jun, Menorrhagia with irregular cycle N92.1 [place] [address] [place] [id number] [place] [address] 04296- 6208 Jun, Menorrhagia with irregular cycle N92.1 [place] [address] [place] [id number] [place] [address] 72436- 3815 10 Jun, 2016 Encounter for Depo-Provera contraception Z30.42 [place] [address] [place] [id number] [place] [address] 83644- 6211 04 Jun, 2016 Menorrhagia with irregular cycle N92.1 [place] [address] [place] [id number] [place] [address] 39370- 3706 May, Menorrhagia with irregular cycle N92.1 [facility] [address] [place] [address] 17524- 2904 Apr, Irregular menses N92.6 [facility] [address] [place] [address] 25252 -7117 March, Conjunctivitis, unspecified conjunctivitis type, unspecified laterality H10.9 [place] [address] [place] [id number] [place] [address] 95377- 0412 March, Encounter for Depo-Provera contraception Z30.42 [facility] [address] [place] [id number] [place] [address] 65154 -6863 Jan, Stye H00.019 [place] [address] [place] [id number] [place] [address] 83177- 0972 Jan, [facility] [address] [place] [id number] [place] [address] 31907- 2838 Dec, Encounter for Depo-Provera contraception Z30.42 [place] [address] [place] [id number] [place] [address] 09938- 3358 Oct, Irregular menstrual bleeding N92.6 and control counseling Z30.9 [place] [address] [place] [id number] [place] [address] 77373- 9011 Aug, Irregular menses 626.4 [place] [address] [place] [id number] [place] [address] 22546- 2616 Jul, Irregular menses 626.4 IMMUNIZATIONS No Known Immunizations SOCIAL HISTORY Never Assessed REASON FOR VISIT OB 4wk f/u, OB Dip-awoods PLAN OF CARE Activity Details Follow Up 3 Weeks Reason: VITAL SIGNS Height 64 in 2018-07-22 Weight 163.7 lbs 2018-07-22 Temperature 97.8 degrees Fahrenheit 2018-07-22 Heart Rate 90 bpm 2018-07-22 Respiratory Rate 18 2018-07-22 BMI 28.099 kg/m2 2018-07-22 Blood pressure systolic 107 mmHg 2018-07-22 Blood pressure diastolic 72 mmHg 2018-07-22 MEDICATIONS Medication Instructions Dosage Frequency Start Date End Date Duration Status Gummies/DHA & FA 0.4-32.5 MG Active RESULTS Name Result Date Reference Range UA OB DIP (IN HOUSE) 2018-07-22 Glucose neg Protein neg PROCEDURES Procedure Date Ordered Result Body Site URINE-NO MICRO Jul 22, 2018 INSTRUCTIONS MEDICATIONS ADMINISTERED No Known Medications
--- OUTSIDE RECORDS SUMMARY | 2019-02-01 18:41 | XMS REPORT ---
Author Author BERNADETTE KANG Organization [facility] Address [address] [place] [address] Care Team Providers Care Emergency Medical Technician Name Role Phone BERNADETTE KANG Unavailable PROBLEMS Type Condition ICD9-CM Code GXL38-YK Code Onset Dates Condition Status SNOMED Code Problem Non-seasonal allergic rhinitis due to pollen J30.1 Active 96923366 ALLERGIES No Information ENCOUNTERS Encounter Location Date Diagnosis [place] [address] 30214- 4327 Jul, [place] [address] 16244- 9128 Jun, Normal , first Z34.00 and care, first in first trimester Z34.01 [place] [address] 32816- 9188 16 Jun, 2018 [place] [address] 46749- 3483 Jun, First trimester Z34.91 and Mouth pain K13.79 [place] [address] 26250- 2686 Jun, [place] [address] 33083- 2410 08 Jun, 2018 Encounter for test, result unknown Z32.00 [place] [address] 07750- 0875 13 May, 2018 control counseling Z30.09 and Sexually transmitted disease exposure Z20.2 [place] [address] 78605- 3806 13 Jan, 2018 Acute bacterial conjunctivitis of right eye H10.31 ; Sore throat J02.9 ; Non-seasonal allergic rhinitis due to pollen J30.1 and Oral contraceptive pill surveillance Z30.41 [place] [address] [place] [id number] [place] [address] 44509- 0030 03 Feb, 2017 control counseling Z30.09 [place] [address] [place] [id number] [place] [address] 53234- 8186 Jan, [place] [address] 17393- 2496 Aug, Abnormal uterine bleeding N93.9 [place] [address] 90210- 2027 Aug, [place] [address] 54266- 5207 Jul, Irregular menstrual bleeding N92.6 and Menorrhagia with irregular cycle N92.1 [place] [address] 43987- 3688 Jul, [place] [address] 82747- 9578 Jun, Menorrhagia with irregular cycle N92.1 [place] [address] [place] [id number] [place] [address] 28581- 0604 Jun, Menorrhagia with irregular cycle N92.1 [place] [address] [place] [id number] [place] [address] 60561- 8375 Jun, Encounter for Depo-Provera contraception Z30.42 [place] [address] [place] [id number] [place] [address] 46048- 2244 Jun, Menorrhagia with irregular cycle N92.1 [place] [address] 21357- 7352 May, Menorrhagia with irregular cycle N92.1 [place] [address] [place] [id number] [place] [address] 25728- 9545 Apr, Irregular menses N92.6 [facility] [address] [address] March, Conjunctivitis, unspecified conjunctivitis type, unspecified laterality H10.9 [place] [address] [address]- 5763 March, Encounter for Depo-Provera contraception Z30.42 [facility] [address] [place] [id number] [place] [address] 24082 -5281 Jan, Stye H00.019 [place] [address] [place] [id number] [place] [address] 23202- 0114 Jan, [place] [address] [place] [id number] [place] [address] 54620- 8246 Dec, Encounter for Depo-Provera contraception Z30.42 [place] [address] [place] [address] 04281- 2190 Oct, Irregular menstrual bleeding N92.6 and control counseling Z30.9 [place] [address] [address]- 8599 Aug, Irregular menses 626.4 [place] [address] [place] [id number] [place] [address] 43139- 5781 Jul, Irregular menses 626.4 IMMUNIZATIONS No Known Immunizations SOCIAL HISTORY Never Assessed REASON FOR VISIT Requests return call PLAN OF CARE VITAL SIGNS MEDICATIONS Unknown Medications RESULTS No Results PROCEDURES No Known procedures INSTRUCTIONS MEDICATIONS ADMINISTERED No Known Medications
--- OUTSIDE RECORDS SUMMARY | 2019-02-01 18:41 | XMS REPORT ---
Author Author MORENOANDREA Pak [facility] Address [address] [place] [address] Care Team Providers Care Bog Cutter Name Role Phone ANDREA MORENO Unavailable PROBLEMS Type Condition ICD9-CM Code KTQ38-MD Code Onset Dates Condition Status SNOMED Code Problem Non-seasonal allergic rhinitis due to pollen J30.1 Active 28319681 Problem Abnormal uterine bleeding N93.9 Active [id number] ALLERGIES No Known Allergies ENCOUNTERS Encounter Location Date Diagnosis [place] [address] [place] [id number] [place] [address] 06708- 2572 May, control counseling Z30.09 and Sexually transmitted disease exposure Z20.2 [place] [address] 03715- 9946 13 Jan, 2018 Acute bacterial conjunctivitis of right eye H10.31 ; Sore throat J02.9 ; Non-seasonal allergic rhinitis due to pollen J30.1 and Oral contraceptive pill surveillance Z30.41 [place] [address] [place] [id number] [place] [address] 06001- 4363 Feb, control counseling Z30.09 [place] [address] [place] [id number] [place] [address] 41738- 3011 Jan, [place] [address] [place] [id number] [place] [address] 97205- 7462 Aug, Abnormal uterine bleeding N93.9 [place] [address] 55464- 0769 Aug, [place] [address] [place] [id number] [place] [address] 96070- 5134 Jul, Irregular menstrual bleeding N92.6 and Menorrhagia with irregular cycle N92.1 [place] [address], [place] [address] Jul, [facility] [address] [place] [id number] [place] [address] 77919- 6807 Jun, Menorrhagia with irregular cycle N92.1 [facility] [address] [place] [address] 84143- 7154 Jun, Encounter for Depo-Provera contraception Z30.42 [facility] [address] [place] [id number] [address]- 5495 Jun, Menorrhagia with irregular cycle N92.1 [place] [address] [place] [id number] [place] [address] 82310- 0561 Jun, Menorrhagia with irregular cycle N92.1 [facility] [address] [place] [id number] [place] [address] 70754- 2323 May, Menorrhagia with irregular cycle N92.1 [facility] [address], [place] [address]- 0101 Apr, Irregular menses N92.6 [facility] [address] [place] [id number] [place] [address] 58651 -2102 March, Conjunctivitis, unspecified conjunctivitis type, unspecified laterality H10.9 [facility] [address] [place] [address] 65441- 6766 March, Encounter for Depo-Provera contraception Z30.42 [facility] [address], [place] [address] Jan, Stye H00.019 [facility] [address] [place] [id number] [place] [address] 17882- 0603 Jan, [facility] [address], [place] [address]- 9462 Dec, Encounter for Depo-Provera contraception Z30.42 [facility] [address] [place] [id number] [address]- 2205 Oct, Irregular menstrual bleeding N92.6 and control counseling Z30.9 [facility] [address] [facility] [id number] [address] Aug, Irregular menses 626.4 [facility] [address] [facility] [id number] [address] Jul, Irregular menses 626.4 IMMUNIZATIONS No Known Immunizations SOCIAL HISTORY Never Assessed REASON FOR VISIT Possible pink eye, redness bilat but states right side itching x2 days ghanshyam araujo , Sore throat since Friday, denies fever PLAN OF CARE Activity Details Follow Up prn Reason: VITAL SIGNS Height 64 in 2018-01-13 Weight 168.3 lbs 2018-01-13 Temperature 98.4 degrees Fahrenheit 2018-01-13 Heart Rate 80 bpm 2018-01-13 Respiratory Rate 18 2018-01-13 BMI 28.89 kg/m2 2018-01-13 Blood pressure systolic 112 mmHg 2018-01-13 Blood pressure diastolic 70 mmHg 2018-01-13 MEDICATIONS Medication Instructions Dosage Frequency Start Date End Date Duration Status Ortho-Cyclen (28) 0.25-35 MG-MCG Orally Once a day 1 tab 24h May, 90 days Active Promethazine HCl 12.5 MG Orally every 6 hrs 1-2 tablet as needed for nausea 6h May, Not-Taking Erythromycin 5 MG/GM Ophthalmic 2 times a day apply 1/2 inch ribbon to right eye 12h Jan, Jan, 07 days Active Fluticasone Propionate 50 MCG/ACT Nasally Once a day 1 spray in each nostril 24h Jan, 30 day(s) Active Ferrous Sulfate 325 (65 Fe) MG Orally Once a day 1 tablet 24h Not- Taking Tobramycin 0.3 % Ophthalmic qid 3 drop into affected eye 6h Jan, Not-Taking RESULTS Name Result Date Reference Range TEST, URINE (IN HOUSE) 2018-01-13 RESULTS Negative Lot # [id number] Control + Exp date 03/2019 STREP A (IN HOUSE) 2018-01-13 STREP A Negative Control + Lot # [id number] Exp date 08/2020 PROCEDURES Procedure Date Ordered Result Body Site STREP A ASSAY W/OPTIC January 13, 2018 URINE TEST January 13, 2018 INSTRUCTIONS MEDICATIONS ADMINISTERED No Known Medications
--- OUTSIDE RECORDS SUMMARY | 2019-02-01 18:41 | XMS REPORT | Continuity of Care Document ---
Author Author [facility] Organization [facility] Address Unknown Phone Unavailable Allergies Active Description Code Type Severity Reaction Onset Reported/Identified Relationship to Patient Clinical Status Yes NKANo Known Allergies NKA Miscellaneous Allergy Unknown N/A 12/03/2006 Medications There is no data. Problems Date Dx Coded Attending Type Code Diagnosis Diagnosed By 12/30/2016 KETTY IH, WILLIS Irwin Ot N93.9 ABNORMAL UTERINE AND VAGINAL BLEEDING, U 04/17/2017 KETTY HI, WILLIS Irwin Ot N93.9 ABNORMAL UTERINE AND VAGINAL BLEEDING, U 10/14/2017 WILLIS HDEZ MD Ot N93.9 ABNORMAL UTERINE AND VAGINAL BLEEDING, U 10/14/2017 KETTY HI, WILLIS Irwin Ot N93.9 ABNORMAL UTERINE AND VAGINAL BLEEDING, U 10/14/2017 MINO LAYTON SID K Ot J70.5 RESPIRATORY CONDITIONS DUE TO SMOKE INHA 10/14/2017 MINO LAYTON SID K Ot M25.571 PAIN IN RIGHT ANKLE AND JOINTS OF RIGHT 10/14/2017 MINO LAYTON SID K Ot S93.401A SPRAIN OF UNSPECIFIED LIGAMENT OF RIGHT 10/14/2017 MINOHellen LAYTON SID K Ot T59.811A TOXIC EFFECT OF SMOKE, ACCIDENTAL (UNINT 10/14/2017 MINO LAYTON SID K Ot X58.XXXA EXPOSURE TO OTHER SPECIFIED FACTORS, INI 10/16/2017 MINO LAYTON SID K Ot J70.5 RESPIRATORY CONDITIONS DUE TO SMOKE INHA 10/16/2017 SID HERZOG DO Ot M25.571 PAIN IN RIGHT ANKLE AND JOINTS OF RIGHT 10/16/2017 MINOHellen LAYTON SID K Ot S93.401A SPRAIN OF UNSPECIFIED LIGAMENT OF RIGHT 10/16/2017 MINO LAYTON SID K Ot T59.811A TOXIC EFFECT OF SMOKE, ACCIDENTAL (UNINT 10/16/2017 MINOHellen LAYTON SID K Ot X58.XXXA EXPOSURE TO OTHER SPECIFIED FACTORS, INI 06/25/2018 WILLIS HDEZ MD, Ot N93.9 ABNORMAL UTERINE AND VAGINAL BLEEDING, U 07/08/2018 WILLIS HDEZ MD, Ot N93.9 ABNORMAL UTERINE AND VAGINAL BLEEDING, U 07/09/2018 LUZ LIND MD, Ot O26.841 UTERINE SIZE-DATE DISCREPANCY, FIRST TRI 07/09/2018 LUZ LIND MD, Ot Z3A.09 9 WEEKS GESTATION OF 11/04/2018 WILLIS HDEZ MD, Ot N93.9 ABNORMAL UTERINE AND VAGINAL BLEEDING, U 11/04/2018 LUZ LIND MD, Ot O26.841 UTERINE SIZE-DATE DISCREPANCY, FIRST TRI 11/04/2018 LUZ LIND MD, Ot Z3A.09 9 WEEKS GESTATION OF 01/29/2019 WILLIS HDEZ MD, Ot N93.9 ABNORMAL UTERINE AND VAGINAL BLEEDING, U 01/29/2019 LUZ LIND MD, Ot O26.841 UTERINE SIZE-DATE DISCREPANCY, FIRST TRI 01/29/2019 LUZ LIND MD, Ot Z3A.09 9 WEEKS GESTATION OF Procedures There is no data. Results Test Result Range CBC With Differential/Platelet - 07/23/16 12:30 WBC 9.4 x10E3/uL 3.4-10.8 RBC 4.21 x10E6/uL 3.77-5.28 Hemoglobin 12.1 g/dL 11.1-15.9 Hematocrit 36.7 % 34.0-46.6 MCV 87 fL 79-97 MCH 28.7 pg 26.6-33.0 MCHC 33.0 g/dL 31.5-35.7 RDW 13.6 % 12.3-15.4 Platelets 241 x10E3/uL 150-379 Neutrophils 72 % Lymphs 20 % Monocytes 6 % Eos 2 % Basos 0 % Neutrophils (Absolute) 6.7 x10E3/uL 1.4-7.0 Lymphs (Absolute) 1.9 x10E3/uL 0.7-3.1 Monocytes(Absolute) 0.5 x10E3/uL 0.1-0.9 Eos (Absolute) 0.2 x10E3/uL 0.0-0.4 Baso (Absolute) 0.0 x10E3/uL 0.0-0.2 Immature Granulocytes 0 % Immature Grans (Abs) 0.0 x10E3/uL 0.0-0.1 CULTURE, GENITAL - 06/24/18 15:20 CULTURE, GENITAL SEE NOTE NRG SUREPATH PAP RFX HPV mRNA E6/E7 - 06/24/18 15:20 CLINICAL INFORMATION: NRG LMP: NRG PREV. PAP: NRG PREV. BX: NRG SOURCE: NRG STATEMENT OF ADEQUACY: NRG INTERPRETATION/RESULT: NRG DIET TECH: NRG COMMENT NRG Encounters ACCT No. Visit Date/Time Discharge Status Pt. Type Provider Facility Loc./Unit Complaint [id number] 07/08/2018 10:51:00 07/08/2018 23:59:59 CLS Outpatient LUZ LIND MD [facility] RAD NORMAL ,FIRST [id number] 10/14/2017 01:40:00 10/14/2017 02:22:00 DIS Emergency MINO DO, SID K [facility] ER RT ANKLE PAIN [id number] 01/03/2016 10:41:00 01/03/2016 23:59:59 CLS Outpatient KETTY HI, WILLIS Irwin [facility] RAD ABNORMAL UTERINE BLEEDING [id number] 02/01/2019 18:34:00 ACT Inpatient LUZ LIND MD [facility] LDRP INDUCTION [id number] 07/24/2016 07:05:00 Document Registration [id number] 01/27/2019 14:45:00 01/27/2019 23:59:59 CLS [facility] [id number] 06/24/2018 14:30:00 Document Registration
--- OUTSIDE RECORDS SUMMARY | 2019-02-01 18:41 | XMS REPORT ---
Author Author BERNADETTE KANG Organization [facility] Address [address] [place] [address] Care Team Providers Care Respiratory Therapist Name Role Phone EBRNADETTE KANG Unavailable PROBLEMS Type Condition ICD9-CM Code PHP62-XV Code Onset Dates Condition Status SNOMED Code Problem Non-seasonal allergic rhinitis due to pollen J30.1 Active 86449748 ALLERGIES No Information ENCOUNTERS Encounter Location Date Diagnosis [place] [address] [address]1 Jul, [place] [address] 38893- 9370 Jun, Normal , first Z34.00 and care, first in first trimester Z34.01 [place] [address] 19062- 6169 16 Jun, 2018 [place] [address] 29459- 5435 Jun, First trimester Z34.91 and Mouth pain K13.79 [place] [address] 65309- 3257 Jun, [place] [address] 58619- 6747 08 Jun, 2018 Encounter for test, result unknown Z32.00 [place] [address] 89856- 1757 13 May, 2018 control counseling Z30.09 and Sexually transmitted disease exposure Z20.2 [place] [address] 75618- 0049 13 Jan, 2018 Acute bacterial conjunctivitis of right eye H10.31 ; Sore throat J02.9 ; Non-seasonal allergic rhinitis due to pollen J30.1 and Oral contraceptive pill surveillance Z30.41 [place] [address] [place] [id number] [place] [address] 43151- 3138 03 Feb, 2017 control counseling Z30.09 [place] [address] [place] [id number] [place] [address] 64009- 8031 Jan, [place] [address] 92925- 8934 Aug, Abnormal uterine bleeding N93.9 [place] [address] 89099- 9201 Aug, [place] [address] 93312- 5047 Jul, Irregular menstrual bleeding N92.6 and Menorrhagia with irregular cycle N92.1 [place] [address] 01046- 3343 Jul, [place] [address] 01075- 3197 Jun, Menorrhagia with irregular cycle N92.1 [place] [address] [place] [id number] [place] [address] 90686- 0624 Jun, Menorrhagia with irregular cycle N92.1 [place] [address] [place] [id number] [place] [address] 68889- 1803 Jun, Encounter for Depo-Provera contraception Z30.42 [place] [address] [place] [id number] [place] [address] 34814- 8235 Jun, Menorrhagia with irregular cycle N92.1 [place] [address] 47657- 4355 May, Menorrhagia with irregular cycle N92.1 [place] [address] [place] [id number] [place] [address] 21738- 1949 Apr, Irregular menses N92.6 [facility] [address] [place] [id number] [address] March, Conjunctivitis, unspecified conjunctivitis type, unspecified laterality H10.9 [facility] [address] [address] March, Encounter for Depo-Provera contraception Z30.42 [facility] [address] [place] [address] 88984 -4029 Jan, Stye H00.019 [place] [address] [place] [address] 77963- 5868 Jan, [place] [address] [place] [address] 27153- 2522 Dec, Encounter for Depo-Provera contraception Z30.42 [place] [address] [place] [address] 77844- 4197 Oct, Irregular menstrual bleeding N92.6 and control counseling Z30.9 [place] [address], [place] [address] 4193 Aug, Irregular menses 626.4 [place] [address] [place] [address] 18495- 9050 Jul, Irregular menses 626.4 IMMUNIZATIONS No Known Immunizations SOCIAL HISTORY Never Assessed REASON FOR VISIT test (walk-in) PLAN OF CARE VITAL SIGNS MEDICATIONS Unknown Medications RESULTS Name Result Date Reference Range TEST, URINE (IN HOUSE) 2018-06-10 RESULTS Positive Lot # [id number] Control + Exp date 11/2019 PROCEDURES Procedure Date Ordered Result Body Site URINE TEST Jun 10, 2018 INSTRUCTIONS MEDICATIONS ADMINISTERED No Known Medications
--- NOTE | 2019-02-01 18:45 | NUR ---
Arrived to unit accompanied by s.o. for induction of labor. Wt obtained and to room 319. gowned and urine sample obtained. To bed and plan of care reviewed. Call light with in reach. Oriented to room.
[2019-02-01] MEDS ORDERED: D5 LR IV SOLUTION 1,000 ML IV ONE (19:06)
[2019-02-01] MEDS ORDERED: LACTATED RINGERS 1,000 ML IV ONE (19:08)
[2019-02-01 19:30] VITALS: BP 133/68
[2019-02-01] MEDS ORDERED: AMPICILLIN FOR IV USE 2,000 MG in WATER (STERILE) FOR INJECTION 14.8 ML IV SCH (19:36)
[2019-02-01] MEDS ORDERED: MISOPROSTOL 100 MCG (CYTOTEC) TAB ONE (19:40)
[2019-02-01] MEDS ORDERED: TERBUTALINE INJ 1 MG/ML (BRETHINE) AMP SC PRN (19:45)
[2019-02-01] MEDS ORDERED: BUTORPHANOL INJ 2 MG/ML (STADOL) VIAL IV PRN (19:45)
[2019-02-01] MEDS ORDERED: ZOLPIDEM 5 MG (AMBIEN) TAB PO NR (19:45)
[2019-02-01] MEDS ORDERED: MINERAL OIL CONCENTRATE 99.9% 15 ML UDC TOP PRN (19:45)
[2019-02-01] MEDS: LACTATED RINGERS 1,000 ML IV SCH (19:54)
[2019-02-01] MEDS: D5 LR IV SOLUTION 1,000 ML IV SCH (19:54)
[2019-02-01 19:57] LABS: BASOPHILS % (AUTO) 0 % (0-10); EOSINOPHILS # (AUTO) 0.1 10^3/uL (0.0-0.3); EOSINOPHILS % (AUTO) 2 % (0-10); HEMATOCRIT 30 % (35-52); HEMOGLOBIN 9.8 G/DL (11.5-16.0); LYMPHOCYTES # (AUTO) 1.6 X 10^3 (1.0-4.0); LYMPHOCYTES % (AUTO) 21 % (12-44); MEAN CORPUSCULAR HEMOGLOBIN 27 PG (25-34); MEAN CORPUSCULAR HGB CONC 33 G/DL (32-36); MEAN CORPUSCULAR VOLUME 83 FL (80-99); MEAN PLATELET VOLUME 11.2 FL (7.4-10.4); MONOCYTES # (AUTO) 0.9 X 10^3 (0.0-1.0); MONOCYTES % (AUTO) 12 % (0-12); NEUTROPHILS # (AUTO) 5.1 X 10^3 (1.8-7.8); NEUTROPHILS % (AUTO) 66 % (42-75); PLATELET COUNT 235 10^3/uL (130-400); RED CELL DISTRIBUTION WIDTH 14.7 % (10.0-14.5); WHITE BLOOD COUNT 7.7 10^3/uL (4.3-11.0)
[2019-02-01] MEDS: MISOPROSTOL 100 MCG (CYTOTEC) TAB PO SCH (20:05)
[2019-02-01] MEDS: CATHETER FLUSH 10 ML SYR IV SCH (22:26)
[2019-02-01 22:30] VITALS: BP 117/76
[2019-02-02] VITALS (47 sets, daily range): BP systolic 101–139; BP diastolic 57–81
[2019-02-02] MEDS: MISOPROSTOL 100 MCG (CYTOTEC) TAB PO SCH (00:08)
[2019-02-02] MEDS: AMPICILLIN FOR IV USE 1,000 MG in WATER (STERILE) FOR INJECTION 7.4 ML IV SCH ×4 (00:09→11:54)
[2019-02-02] MEDS: D5 LR IV SOLUTION 1,000 ML IV SCH ×2 (03:19→11:53)
[2019-02-02] MEDS: CATHETER FLUSH 10 ML SYR IV SCH (06:13)
[2019-02-02] MEDS: LACTATED RINGERS 1,000 ML IV SCH (06:55)
--- NOTE | 2019-02-02 07:15 | NUR ---
Anesthesia called and notified of need for labor epidural
[2019-02-02] MEDS ORDERED: SUFENTA 0.6MCG/ML BUPIVA 0.125 100 ML ONE (07:16)
[2019-02-02] MEDS ORDERED: OXYTOCIN/NORMAL SALINE 500 ML IV SCH ×2 (07:23→13:25)
--- NOTE | 2019-02-02 07:41 | History & Physical-OB ---
OB - Chief Complaint & HPI Date/Time Date of Admission: Date of Admission: Feb 01, 2019 at 18:34 Date seen by a Provider: Feb 02, 2019 Time Seen by a Provider: 07:00 Chief Complaint/History OB-Reason for Admission/Chief: Induction of Labor Hx : 1 Hx Para: 0 Expected Date of Delivery: Feb 07, 2019 Gestational Age in Weeks: 39 Gestational Age in Days: 1 Admission Nurse Assessment Rev: Yes History of Labs GBS positive Allergies and Home Medications Allergies Coded Allergies: NKANo Known Allergies (Verified Allergy, Unknown, 12/03/06) Home Medications Naproxen 500 Mg Tablet, 500 MG PO BID Prescribed by: SID HERZOG on 10/14/17 0212 Patient Home Medication List Home Medication List Reviewed: Yes OB - History Hx of Present Care: Yes Ultrasounds: Normal mid trimester US Obstetrical Complications: None Medical Complications: None Delivery History Hx Blood Disorders: No Adverse Rxn to Tranfusion: No Patient Past Medical History no chronic medical problems Social History/Family History Alcohol Use: Denies Use Recreational Drug Use: No 2nd Hand Smoke Exposure: No Immunizations Tetanus Booster (TDap): Unknown OB - Admission Exam Physical Exam Vitals: Vital Signs 02/02/19 06:00 Temp 97.1 Pulse 94 Resp 18 B/P (MAP) 120/78 (92) HEENT: Moist Membranes Heart: Rhythm Normal Lungs: Clear Abdomen: Gravid Cervical Dilatation: 3cm Effacement: 75% Station: -2 Membranes: Ruptured Amniotic Fluid: Clear Heart Rate: 140's Accelerations: Accelerations Present Short Term Variability: Present Medical Imaging Technologist Variability: Average (6-25) Contractions on Admission: 6-10 Minutes Apart Intensity: Moderate Coe Scoring Tool (Modified) Dilation (cm): 3-4cm (2) Effacement (%): 51-79% (2) Descent/Station: -2 (1) Cervix Consistency: Medium(1) Cervix Position: Middle/Mid-Position (1) Coe Score: 7 Labs Laboratory Tests Test 02/01/19 19:20 Range/Units White Blood Count 7.7 4.3-11.0 10^3/uL Red Blood Count 3.65 L 4.35-5.85 10^6/uL Hemoglobin 9.8 L 11.5-16.0 G/DL Hematocrit 30 L 35-52 % Mean Corpuscular Volume 83 80-99 FL Mean Corpuscular Hemoglobin 27 25-34 PG Mean Corpuscular Hemoglobin Concent 33 32-36 G/DL Red Cell Distribution Width 14.7 H 10.0-14.5 % Platelet Count 235 130-400 10^3/uL Mean Platelet Volume 11.2 H 7.4-10.4 FL Neutrophils (%) (Auto) 66 42-75 % Lymphocytes (%) (Auto) 21 12-44 % Monocytes (%) (Auto) 12 0-12 % Eosinophils (%) (Auto) 2 0-10 % Basophils (%) (Auto) 0 0-10 % Neutrophils # (Auto) 5.1 1.8-7.8 X 10^3 Lymphocytes # (Auto) 1.6 1.0-4.0 X 10^3 Monocytes # (Auto) 0.9 0.0-1.0 X 10^3 Eosinophils # (Auto) 0.1 0.0-0.3 10^3/uL Basophils # (Auto) 0.0 0.0-0.1 10^3/uL OB - Assessment/Plan/Diagnosis Assessment Assessment: induction of labor Admission Dx IUP at 39 weeks Admission Status: Inpatient Order (span 2 midnights) Reason for Inpatient Admission: Induction of labor Plan Induction Method: per Misoprostol Protocol Other Plan -patient desires epidural -pitocin as necessary 2. GBS positive -amp protochol LUZ LIND MD Feb 02, 2019 07:41
[2019-02-02] MEDS ORDERED: fentaNYL INJECTION 100 MCG/2 ML AMP ONE (07:51)
[2019-02-02] MEDS ORDERED: BUPIVACAINE 0.25% 30 ML (SENSORCAINE) VIAL ONE (07:51)
[2019-02-02] MEDS ORDERED: LIDOCAINE PF 2% 5 ML (XYLOCAINE) VIAL ONE (07:51)
[2019-02-02] MEDS ORDERED: LACTATED RINGERS 1,000 ML IV ONE ×2 (08:22)
[2019-02-02] MEDS ORDERED: ONDANSETRON 4 MG/2 ML (SDV) Z0FRAN ONE (08:24)
[2019-02-02] MEDS ORDERED: ONDANSETRON 4 MG/2 ML (SDV) Z0FRAN IV PRN (08:30)
[2019-02-02] MEDS ORDERED: EPIDURAL (SUFENTA 0.6MCG/ML BUPIVA 0.125%) 100 ML BAG EPI PRN (08:30)
[2019-02-02] MEDS ORDERED: NALOXONE 0.4 MG/ML 1 ML (NARCAN) VIAL IV PRN (08:30)
--- NOTE | 2019-02-02 13:25 | OB Labor & Delivery Record ---
L&D History Date of Service Date of Service: Feb 02, 2019 History Expected Date of Delivery: Feb 07, 2019 Gestational Age in Weeks: 39 Hx : 1 Hx Para: 0 Complications Events: Routine care Operative Indications (Cesarea: N/A-Vaginal Delivery Intrapartal Events: None Other Complications GBS positive at 36 weeks. Received amp protochol L&D Stage1 Stage One Onset of Labor - Date: Feb 02, 2019 Onset of Labor - Time: 04:10 Monitors and Tracing Monitor Mode: Internal Heart Rate: 130 Monitor Accelerations: Uniform Monitor Decelerations: Variable Station: -1 Assisted Variability: Average (6-10) Short Term Variability: Present Presentation: Vertex Vital Signs VS - Last 72 Hours, by Label 02/01/19 02/01/19 02/02/19 02/02/19 19:30 22:30 00:30 02:00 Temp 98.1 98.1 98.0 Pulse 111 96 97 98 Resp 18 18 B/P (MAP) 133/68 (89) 117/76 (90) 125/69 (87) 106/58 (74) 02/02/19 02/02/19 02/02/19 02/02/19 04:00 06:00 07:55 08:08 Temp 97.9 97.1 98.1 Pulse 78 94 100 103 Resp 18 18 18 B/P (MAP) 106/68 (81) 120/78 (92) 138/69 (92) 135/77 (96) Pulse Ox 99 O2 Delivery Room Air 02/02/19 02/02/19 02/02/19 02/02/19 08:15 08:18 08:21 08:23 Pulse 98 92 96 103 Resp 18 18 18 18 B/P (MAP) 130/72 (91) 119/74 (89) 120/74 (89) 117/72 (87) Pulse Ox 99 99 99 99 O2 Delivery Room Air Room Air Room Air Room Air 02/02/19 02/02/19 02/02/19 02/02/19 08:27 08:30 08:33 08:36 Pulse 88 96 95 73 Resp 18 18 18 18 B/P (MAP) 121/77 (92) 116/72 (87) 125/76 (92) 126/74 (91) Pulse Ox 99 98 99 O2 Delivery Room Air Room Air Room Air Room Air 02/02/19 02/02/19 02/02/19 02/02/19 08:39 08:55 09:13 09:27 Pulse 88 89 86 91 Resp 18 18 18 18 B/P (MAP) 121/72 (88) 111/58 (75) 101/57 (72) 101/59 (73) Pulse Ox 99 100 99 100 O2 Delivery Room Air Room Air Room Air Room Air 02/02/19 02/02/19 02/02/19 02/02/19 09:43 09:59 10:14 10:30 Temp 97.4 Pulse 96 88 93 91 Resp 18 18 18 18 B/P (MAP) 134/72 (92) 126/74 (91) 135/70 (91) 116/68 (84) Pulse Ox 100 98 99 O2 Delivery Room Air Room Air Room Air Room Air 02/02/19 02/02/19 10:45 11:00 Pulse 108 86 Resp 18 18 B/P (MAP) 121/74 (90) 122/68 (86) O2 Delivery Room Air Room Air Signs of Distress by FHT Signs of Distress no Rupture of Membranes Spontaneous Ruture of Membrane: Yes Amniotic Membrane Rupture Time: 0410 Amniotic Membrane Fluid Desc.: Clear Induction/Anesthesia Epidural Cath Placement - Time: 0809 L&D Stage2 Stage Two Stage II Date: Feb 02, 2019 Stage II Time: 12:53 Monitors and Tracing Monitor Mode: Internal Heart Rate: 130 Monitor Accelerations: Uniform Monitor Decelerations: Variable Injection Molder Variability: Average (6-10) Short Term Variability: Present Position: Left Occiput Transverse Presentation: Vertex Signs of Distress by FHT Signs of Distress no Cord Descript/Complications Cord Vessel Description: 3 Vessels Delivery Type Infant Delivery Method: Spontaneous Vaginal Anterior Shoulder: Left Episiotomy/Perineal Laceration Laceraction(s)/Extensions: Yes Episiotomy Description: Midline Sutures Used: Vicryl Condition of Delivery 1 minute Comment: 7 5 minute Comment: 9 Condition of Condition of Infant: Living Exam: No Observed Abnormalities Resuscitation Resuscitation: N/A - Spontaneous Resp Resuscitation Comments: cpap L&D Stage3 Stage Three Stage III Date: Feb 02, 2019 Stage III Time: 12:58 Pictocin Pitocin Administration mu/min: 8 Pitocin ml/hr: 8 Pitocin Administration Comment: Pitocin increased per protocol Placenta Delivery Placenta Delivery: Spontaneous Delivery Summary Summary Estimated blood loss (mL): 200 Condition of Delivery Examined: Cervix Examined Post Hemorrhage: No Intervention Required none LUZ LIND MD Feb 02, 2019 13:25
[2019-02-02] MEDS ORDERED: WITCH HAZEL(TUCKS) 40 EA JAR TOP PRN (13:30)
[2019-02-02] MEDS ORDERED: HYDROcodone/APAP 5 MG/325 MG (LORTAB) TAB PO PRN (13:30)
[2019-02-02] MEDS ORDERED: MEASLES,MUMPS,RUBELLA 1 EA INJ SQ ONE (13:30)
[2019-02-02] MEDS ORDERED: TETANUS,DIPTH,PERTUSS P/F (BOOSTRIX) 0.5 ML VIAL IM ONE (13:30)
[2019-02-02] MEDS ORDERED: BENZOCAINE/MENTHOL (DERMOPLAST) 56 ML CAN TP PRN (13:30)
[2019-02-02] MEDS ORDERED: CATHETER FLUSH 10 ML SYR IV SCH (14:00)
[2019-02-02] MEDS: IBUPROFEN 600 MG (MOTRIN) TAB PO SCH ×2 (16:15→22:14)
--- NOTE | 2019-02-02 16:20 | NUR ---
Motrin given. FFU, light rubra lochia noted, no clots expressed. Pericare performed, fresh vpad and underwear, gown applied. Pt denies need to void at this time. Pt assisted to wheelchair without difficulty. Taken to [facility] to see infant at this time accompanied by RN and S.O. All personal belongings to room 309.
--- NOTE | 2019-02-02 17:15 | NUR ---
Pt to PP room 309 via wheelchair accompanied by SMichael and RN. Pt ambulates to bathroom without difficulty, + void. Pericare demonstrated. Fresh vpad and underwear applied.
--- NOTE | 2019-02-02 18:30 | NUR ---
Pt assisted with pump set up, instructed to pump for 15-20min and call us for milk storage and part cleaning.
--- NOTE | 2019-02-02 19:30 | NUR ---
PM assessment completed. VSS. Fundus is firm, bleeding is appropriate. No S/S of distress noted. No questions or concerns voiced at this time. Call light within reach. will continue to monitor.
[2019-02-03 03:40] VITALS: BP 129/79
[2019-02-03] MEDS: IBUPROFEN 600 MG (MOTRIN) TAB PO SCH (03:45)
[2019-02-03 06:38] LABS: BASOPHILS % (AUTO) 0 % (0-10); EOSINOPHILS # (AUTO) 0.1 10^3/uL (0.0-0.3); EOSINOPHILS % (AUTO) 1 % (0-10); HEMATOCRIT 27 % (35-52); HEMOGLOBIN 8.9 G/DL (11.5-16.0); LYMPHOCYTES # (AUTO) 1.8 X 10^3 (1.0-4.0); LYMPHOCYTES % (AUTO) 23 % (12-44); MEAN CORPUSCULAR HEMOGLOBIN 27 PG (25-34); MEAN CORPUSCULAR HGB CONC 33 G/DL (32-36); MEAN CORPUSCULAR VOLUME 83 FL (80-99); MEAN PLATELET VOLUME 10.4 FL (7.4-10.4); MONOCYTES # (AUTO) 0.9 X 10^3 (0.0-1.0); MONOCYTES % (AUTO) 11 % (0-12); NEUTROPHILS # (AUTO) 5.1 X 10^3 (1.8-7.8); NEUTROPHILS % (AUTO) 64 % (42-75); PLATELET COUNT 227 10^3/uL (130-400); RED CELL DISTRIBUTION WIDTH 14.9 % (10.0-14.5)
--- NOTE | 2019-02-03 07:08 | Anesthesia-Regional Post-Op ---
Regional Patient Condition Mental Status: Alert, Oriented x3 Circulation: Same as Pre-Op Headache: Absent Sensation: Full Recovery Motor Block: Absent Post Op Complications Complications None Follow Up Care/Instructions Patient Instructions None needed. Anesthesia/Patient Condition Patient is doing well, no complaints, stable vital signs, no apparent adverse anesthesia problems. No complications reported per nursing. TERRELL LAN CRNA Feb 03, 2019 07:08
--- NOTE | 2019-02-03 07:30 | NUR ---
Dr. Anaya to room to see pt. D/C orders rec'd.
[2019-02-03 07:50] VITALS: BP 122/72
--- NOTE | 2019-02-03 07:58 | Discharge Summary ---
Diagnosis/Chief Complaint Date of Admission Feb 01, 2019 at 18:34 Date of Discharge February 03, 2019 Admission Diagnosis Admission Diagnosis 1. IUP at 39w2d Discharge Diagnosis 1. IUP at 39w2d Chief Complaint/HPI Chief Complaint/HPI 23 yo G1 now T1L1 who initially presented to L&D for induction of labor at 39w2d gestation. Her EDC was February 07, 2019 based upon early US. Discharge Summary-OBS Procedures 1. Epidural per anesthesia 2. 3. Repair of MLE Discharge Physical Examination Allergies: Coded Allergies: NKANo Known Allergies (Verified Allergy, Unknown, 12/03/06) Vitals & I&Os Intake and Output 02/03/19 00:00 Intake Total 7.4 ml Balance 7.4 ml Vital Sign - Last 12Hours Date Time Temp Pulse Resp B/P (MAP) Pulse Ox O2 Delivery O2 Flow Rate FiO2 02/03/19 03:40 98.2 89 16 129/79 (96) 99 Room Air General Appearance: No Acute Distress Respiratory: Clear to Auscultation Cardiovascular: Regular Rate Abdominal: Soft (with uterus firm) Hospital Course Was the Problem List Reviewed?: Yes See PN Labs Laboratory Tests 02/03/19 06:15: White Blood Count 8.0, Red Blood Count 3.31L, Hemoglobin 8.9L, Hematocrit 27L, Mean Corpuscular Volume 83, Mean Corpuscular Hemoglobin 27, Mean Corpuscular Hemoglobin Concent 33, Red Cell Distribution Width 14.9H, Platelet Count 227, Mean Platelet Volume 10.4, Neutrophils (%) (Auto) 64, Lymphocytes (%) (Auto) 23 , Monocytes (%) (Auto) 11, Eosinophils (%) (Auto) 1, Basophils (%) (Auto) 0, Neutrophils # (Auto) 5.1, Lymphocytes # (Auto) 1.8, Monocytes # (Auto) 0.9, Eosinophils # (Auto) 0.1, Basophils # (Auto) 0.0 Discharge Instructions to patient/family Please see electronic discharge instructions given to patient. Discharge Medications Reviewed and agree with Discharge Medication list on patient's Discharge Instruction sheet Clinical Quality Measures DVT/VTE Risk/Contraindication: Risk Factor Score Per Nursin RFS Level Per Nursing on Admit: 1=Low/No VTE PPX LUZ LIND MD Feb 03, 2019 07:58
--- NOTE | 2019-02-03 08:00 | Discharge Inst-Women's Service ---
Discharge Inst-Women's Serv Depart Medication/Instructions New, Converted or Re-Newed RX: Other Consults/Follow Up Additional Follow Up: Yes (Dr Lind in 6 weeks) Activity Activity: Activity as Tolerated Driving Instructions: You May Drive Nothing Inside Vagina: No [place] (for 6 weeks.) Diet Discharge Diet: Regular Diet Return to The Hospital For: as below Symptoms to Report to : Swelling Increased, Bleeding Excessive, Pain Increased, Fever Over 101 Degrees F, Vaginal Discharge Foul For Any Problems or Questions: Contact Your Physician LUZ LIND MD Feb 03, 2019 08:00
--- NOTE | 2019-02-03 09:00 | NUR ---
Discussed pumping with pt and reviewed guidelines; encouraged her to continue pumping every 2-3 hours for 15 minutes until baby is well. Discussed milk supply expectations and reassurance given. [employer] pump kit to be sent with pt on discharge for use in NICU as needed. Pt verbalized understanding.
--- NOTE | 2019-02-03 09:22 | NUR ---
Discharge instructions explained to pt and family with copy provided to pt. Pt choosing to take OTC ibuprofen vs prescription. Pt verbalizes understanding of teaching, denies questions or concerns at this time. Pt notified of follow up appt. Pt ambulates off unit accompanied by S.O., Mom, and RN to private vehicle. All personal belongings with pt.
== END 2019-02-03 09:22 | disposition home or self-care (01) | DRG 807 ==
LOC: LDRP 18:34
PROVIDERS: ADMIT Family Medicine; ATTEND Family Medicine
PROC: 3E0DXGC Introduction of Other Therapeutic Substance into Mouth and Pharynx, External Approach (ICD-10-PCS; 2019-02-01)
PROC: 10E0XZZ Delivery of Products of Conception, External Approach (ICD-10-PCS; principal; 2019-02-02)
PROC: 0W8NXZZ Division of Female Perineum, External Approach (ICD-10-PCS; 2019-02-02)
DX: O99.824 Streptococcus B carrier state complicating childbirth (principal); Z3A.39 39 weeks gestation of pregnancy; Z37.0 Single live birth
CPT/HCPCS: 36415; 85025; 86850; 86900; 86901

== ENCOUNTER → 2019-04-27 | Day surgery (SDC) | payer MEDICAID ==
[~2019-04-27] VITALS: Ht 165.1 cm; Wt 83.0 kg
[~2019-04-27] MED LIST changes: +LACTATED RINGERS 1,000 ML IV ONE; +LACTATED RINGERS 1,000 ML IV STA; +PNV1TABL81 PO; +bcp PO; +proPOfol 200 MG/20 ML (DIPRIVAN) VIAL IV ONE
[2019-04-27 13:45] VITALS: BP 114/85
--- NOTE | 2019-04-27 13:55 | Progress Note-Pre Operative ---
Pre-Operative Progress Note H&P Reviewed The H&P was reviewed, patient examined and no changes noted. Date Seen by Provider: Apr 27, 2019 Time Seen by Provider: 13:54 Date H&P Reviewed: Apr 27, 2019 Time H&P Reviewed: 13:54 Pre-Operative Diagnosis: blood in stool SORAYA ALTMAN DO Apr 27, 2019 13:55
--- NOTE | 2019-04-27 14:58 | Progress Note-Post Operative ---
Post-Operative Progess Note Surgeon (s)/Investigator Internal Revenue (s) Surgeon SORAYA ALTMAN DO Investigator Internal Revenue: na Pre-Operative Diagnosis blood in stool Post-Operative Diagnosis normal colon, small healing anal fissure Procedure & Operative Findings Date of Procedure 04/27/19 Procedure Performed/Findings colonoscopy Anesthesia Type per visual inspector Estimated Blood Loss Estimated blood loss (mL): none Specimens/Packing Specimens Removed na SORAYA ALTMAN DO Apr 27, 2019 14:58
--- NOTE | 2019-04-27 15:00 | Discharge Inst-Simple/Standard ---
Discharge Inst-Standard Patient Instructions/Follow Up Plan of Care/Instructions/FU: 2 weeks Vahe Activity as Tolerated: Yes Discharge Diet: Regular Diet (high fiber, keep stools soft) SORAYA ALTMAN DO Apr 27, 2019 15:00
[2019-04-27 15:05] VITALS: BP 131/79
--- NOTE | 2019-04-27 16:30 | Anesthesia-General Post-Op ---
MAC Patient Condition Mental Status/LOC: Same as Preop Cardiovascular: Satisfactory Nausea/Vomiting: Absent Respiratory: Satisfactory Pain: Controlled Complications: Absent Post Op Complications Complications None Follow Up Care/Instructions Patient Instructions None needed. Anesthesiology Discharge Order Discharge Order Patient is doing well, no complaints, stable vital signs, no apparent adverse anesthesia problems. No complications reported per nursing. MATT GARCIA CRNA Apr 27, 2019 16:30
--- NOTE | 2019-04-27 20:28 | OPERATIVE REPORT ---
DATE OF SERVICE: 04/27/2019 PREOPERATIVE DIAGNOSIS: Blood in stool. POSTOPERATIVE DIAGNOSIS: Normal colon. Small healing anal fissure. PROCEDURE: Colonoscopy. SURGEON: Soraya Cotter DO ANESTHESIA: Per ETL ANALYST DEVELOPER. ESTIMATED BLOOD LOSS: None. COMPLICATIONS: None. INDICATIONS: The patient is a 23-year-old female who was having blood in stools. She understands risks and benefits of procedure and wished to proceed with procedure. Consent was signed in the chart. DESCRIPTION OF PROCEDURE: The patient was taken to the endoscopy suite, placed in left lateral recumbent position. Timeout was performed. Digital rectal exam was performed. There were no palpable polyps, masses or ulcerations. It looks as if a small healing anal fissure present. Scope was inserted in the rectum and advanced all the way to the cecum with minimal difficulty. Prep was adequate. Scope was then slowly retracted back. There were no polyps, masses or ulcerations in the cecum, ascending, transverse, descending and sigmoid colon. Once in the rectum, scope was retroflexed noting no other pathology. Scope was returned to its normal position, slowly withdrawn until completely removed. The patient tolerated the procedure well without any complications. She was taken to recovery room in stable condition. RECOMMENDATIONS: The patient to continue on diltiazem cream stool soft with stool softener. The patient will follow up in two to three weeks. Any issues before that will be seen at that time. The patient will need repeat colonoscopy per routine screening guidelines. If she has any issues before that, she will be seen at that time. Job ID: [id number] DocumentID: [id number] Dictated Date: 04/27/2019 15:02:17 Director Field Services Date: 04/27/2019 20:28:18 Dictated By: SORAYA COTTER DO
== END | disposition home or self-care (01) ==
LOC: ENDO 13:23
PROVIDERS: ATTEND Surgery
DX: K60.2 Anal fissure, unspecified (principal)
CPT/HCPCS: 84703

== ENCOUNTER 2020-07-28 20:27 | Emergency (ER) | payer OTHER, MEDICAID ==
[~2020-07-28] VITALS: Ht 165 cm; Wt 77.0 kg
[~2020-07-28 20:27] MED LIST changes: -LACTATED RINGERS 1,000 ML IV ONE; -LACTATED RINGERS 1,000 ML IV STA; -proPOfol 200 MG/20 ML (DIPRIVAN) VIAL IV ONE
[2020-07-28] MEDS ORDERED: METH-313 PO (20:46)
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
[2020-07-28 20:52] VITALS: BP 129/84
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
== END 2020-07-28 21:19 | disposition home or self-care (01) ==
LOC: EDUNIT# 20:27 → ER 20:28
DX: S16.1XXA Strain of muscle, fascia and tendon at neck level, initial encounter (principal); S40.812A Abrasion of left upper arm, initial encounter; R40.2142 Coma scale, eyes open, spontaneous, at arrival to emergency department; R40.2252 Coma scale, best verbal response, oriented, at arrival to emergency department; R40.2362 Coma scale, best motor response, obeys commands, at arrival to emergency department; V49.40XA Driver injured in collision with unspecified motor vehicles in traffic accident, initial encounter
CPT/HCPCS: 72040; 72100; 73060

== ENCOUNTER → 2021-02-06 | Outpatient (CLI) | payer MEDICAID, OTHER ==
[~2021-02-06] MED LIST changes: +METH-313 PO
--- NOTE | 2021-02-06 14:58 | Diagnostic Imaging Report ---
PROCEDURE: US OB SINGLE FETUS <14 WKS. TECHNIQUE: Multiple Real-time grayscale images were obtained over the gravid uterus in various projections. INDICATION: OB ultrasound for age, dating. FINDINGS: There is a single live intrauterine fetus. The crown-rump length of 2.22 cm is consistent with a 9 week 0 day gestation. The heart rate is 165 BPM. A yolk sac is demonstrated. The amniotic sac appears normal. There is no subchorionic fluid. The maternal ovaries are not identified. There is no free fluid in the adnexa. IMPRESSION: 9 week 0 day intrauterine by current biometric measurements. Sonographic EDC of 09/11/2021. Dictated by: Dictated on workstation # [id number]
== END ==
LOC: RAD 11:51
PROVIDERS: ATTEND Family Medicine
DX: Z34.91 Encounter for supervision of normal pregnancy, unspecified, first trimester (principal); Z3A.09 9 weeks gestation of pregnancy
CPT/HCPCS: 76801

== ENCOUNTER → 2021-04-25 | Outpatient (CLI) | payer MEDICAID ==
--- NOTE | 2021-04-25 14:24 | Diagnostic Imaging Report ---
INDICATION: survey. TECHNIQUE: Multiple real-time grayscale images were obtained over the gravid uterus. COMPARISON: None FINDINGS: There is a single live fetus in a breech presentation. heart rate was recorded at 143 bpm. Placenta is posterior and low lying. Amniotic fluid index is normal. survey demonstrates kidneys, bladder and stomach to be unremarkable. brain is unremarkable. There is a four-chamber heart. There is a three-vessel cord with normal insertion. spine is unremarkable. Biometrical measurements are as follows: Biparietal 4.63 cm, age 20 weeks 0 days. Head circumference 17.30 cm, age 19 weeks 6 days. Abdominal circumference 14.21 cm, age 19 weeks 4 days. Femur length 3.25 cm, age 20 weeks 1 days. Sonographic estimate age: 20 weeks 0 days. Sonographic estimated date of delivery: 09/12/2021. Estimated Weight: 316 gm (+/- 46 gm). LMP percentile: 53%. heart rate: 143 beats per minute. number: 1 of 1. IMPRESSION: Single live IUP 20 weeks 0 days gestational age. Estimated date of confinement sonographically is 09/12/2021. Dictated by: Dictated on workstation # [id number]
== END ==
LOC: RAD 10:00
PROVIDERS: ATTEND Family Medicine
DX: Z34.92 Encounter for supervision of normal pregnancy, unspecified, second trimester (principal); Z3A.20 20 weeks gestation of pregnancy
CPT/HCPCS: 76805

== ENCOUNTER 2021-09-05 07:30 | Inpatient (IN) | payer MEDICAID ==
[2021-09-05] VITALS (45 sets, daily range): BP systolic 108–144; BP diastolic 56–90
[~2021-09-05] VITALS: Ht 168 cm; Wt 109.0 kg
[2021-09-05] MEDS ORDERED: OXYTOCIN PRE-MIX DRIP 500 ML IV SCH ×2 (08:00→17:00)
[2021-09-05] MEDS: D5 LR IV SOLUTION 1,000 ML IV SCH ×2 (08:18→16:16)
[2021-09-05 08:19] LABS: BASOPHILS % (AUTO) 0 % (0-10); EOSINOPHILS # (AUTO) 0.1 10^3/uL (0.0-0.3); EOSINOPHILS % (AUTO) 1 % (0-10); HEMATOCRIT 36 % (35-52); HEMOGLOBIN 12.3 g/dL (11.5-16.0); LYMPHOCYTES # (AUTO) 1.3 10^3/uL (1.0-4.0); LYMPHOCYTES % (AUTO) 21 % (12-44); MEAN CORPUSCULAR HEMOGLOBIN 30 pg (25-34); MEAN CORPUSCULAR HGB CONC 34 g/dL (32-36); MEAN CORPUSCULAR VOLUME 89 fL (80-99); MEAN PLATELET VOLUME 10.8 fL (9.0-12.2); MONOCYTES # (AUTO) 0.6 10^3/uL (0.0-1.0); MONOCYTES % (AUTO) 9 % (0-12); NEUTROPHILS # (AUTO) 4.3 10^3/uL (1.8-7.8); NEUTROPHILS % (AUTO) 68 % (42-75); PLATELET COUNT 190 10^3/uL (130-400); WHITE BLOOD COUNT 6.3 10^3/uL (4.3-11.0)
[2021-09-05] MEDS ORDERED: PREN-37 PO (08:54)
[2021-09-05] MEDS ORDERED: FLU QUADRIvalent (3YOA+) 60 mcg/0.5 ml 2021-22(AFLURIA) IM ONE (10:30)
[2021-09-05] MEDS ORDERED: fentaNYL 2 mcg/ml BUPIVA 0.125 100 ML ONE (10:59)
[2021-09-05] MEDS ORDERED: BUPIVACAINE 0.25% 30 ML (SENSORCAINE) VIAL ONE (12:07)
[2021-09-05] MEDS ORDERED: fentaNYL INJ 100 MCG/2 ML AMP ONE (12:07)
[2021-09-05] MEDS ORDERED: LACTATED RINGERS 1,000 ML IV SCH (12:15)
[2021-09-05] MEDS ORDERED: EPIDURAL (fentaNYL 2 MCG/ML BUPIVA 0.125%)100 ML BAG EPI PRN (12:15)
[2021-09-05] MEDS ORDERED: diphenhydrAMINE 50 MG/ML INJ (BENADRYL) IV PRN (12:15)
[2021-09-05] MEDS ORDERED: ONDANSETRON 4 MG/2 ML (SDV) Z0FRAN IV PRN (12:15)
[2021-09-05] MEDS ORDERED: NALOXONE 0.4 MG/ML 1 ML (NARCAN) VIAL IV PRN ×2 (12:15→17:00)
[2021-09-05] MEDS ORDERED: CATHETER FLUSH 10 ML SYR IV SCH (14:00)
[2021-09-05] MEDS ORDERED: MEPIVACAINE (CARBOCAINE) 2% 50 ML VIAL ONE (16:06)
--- NOTE | 2021-09-05 16:50 | History & Physical-OB ---
OB - Chief Complaint & HPI Date/Time Date of Admission: Date of Admission: Sep 05, 2021 at 07:51 Date seen by a Provider: Sep 05, 2021 Time Seen by a Provider: 16:10 Chief Complaint/History OB-Reason for Admission/Chief: Rupture of Membranes Hx : 2 Hx Para: 1 Expected Date of Delivery: Sep 11, 2021 Gestational Age in Weeks: 39 Gestational Age in Days: 1 Admission Nurse Assessment Rev: Yes History of Labs GBS negative Allergies and Home Medications Allergies Coded Allergies: NKANo Known Allergies (Verified Allergy, Unknown, 12/03/06) Patient Home Medication List Home Medication List Reviewed: Yes Vit/Iron Fumarate/FA ( Tablet) 1 Each Tablet, 1 EACH PO DAILY, (Reported) Entered as Reported by: BRENDON LEVI on 09/05/21 0854 Last Action: New Order Discontinued Medications Methocarbamol (Robaxin-750) 750 Mg Tablet, 750 MG PO Q4H PRN for PAIN-MODERATE (5-7) Discontinued Reason: No Longer Taking Prescribed by: NICK CONTRERAS on 07/28/202045 Last Action: Discontinued Pnv No.122/Iron/Folic Acid ( Multi Tablet) 1 Each Tablet, 1 EACH PO DAILY, (Reported) Discontinued Reason: No Longer Taking Entered as Reported by: ÁNGEL MORENO on 04/23/19 1245 Last Action: Discontinued [bcp] , 1 TAB PO DAILY, (Reported) Discontinued Reason: No Longer Taking Entered as Reported by: ÁNGEL MORENO on 04/23/19 1245 Last Action: Discontinued OB - History Hx of Present Care: Yes Ultrasounds: Normal mid trimester US Obstetrical Complications: None Medical Complications: None Delivery History Hx Blood Disorders: No Adverse Rxn to Tranfusion: No Patient Past Medical History no chronic medical problems Social History/Family History 2nd Hand Smoke Exposure: No Immunizations Tetanus Booster (TDap): Unknown OB - Admission Exam Physical Exam Vitals: Vital Signs 09/05/21 09/05/21 12:45 13:15 Temp 36.5 Pulse 88 Resp 18 B/P (MAP) 124/56 (78) Pulse Ox 97 O2 Delivery Room Air HEENT: Moist Membranes Heart: Rhythm Normal Lungs: Clear Cervical Dilatation: 3cm (on presentation) Station: -2 Membranes: Ruptured Amniotic Fluid: Clear Heart Rate: 140's Accelerations: Accelerations Present Contractions on Admission: 6-10 Minutes Apart Intensity: Moderate Labs Laboratory Tests Test 09/05/21 08:00 Range/Units White Blood Count 6.3 4.3-11.0 10^3/uL Red Blood Count 4.08 3.80-5.11 10^6/uL Hemoglobin 12.3 11.5-16.0 g/dL Hematocrit 36 35-52 % Mean Corpuscular Volume 89 80-99 fL Mean Corpuscular Hemoglobin 30 25-34 pg Mean Corpuscular Hemoglobin Concent 34 32-36 g/dL Red Cell Distribution Width 14.4 10.0-14.5 % Platelet Count 190 130-400 10^3/uL Mean Platelet Volume 10.8 9.0-12.2 fL Immature Granulocyte % (Auto) 1 % Neutrophils (%) (Auto) 68 42-75 % Lymphocytes (%) (Auto) 21 12-44 % Monocytes (%) (Auto) 9 0-12 % Eosinophils (%) (Auto) 1 0-10 % Basophils (%) (Auto) 0 0-10 % Neutrophils # (Auto) 4.3 1.8-7.8 10^3/uL Lymphocytes # (Auto) 1.3 1.0-4.0 10^3/uL Monocytes # (Auto) 0.6 0.0-1.0 10^3/uL Eosinophils # (Auto) 0.1 0.0-0.3 10^3/uL Basophils # (Auto) 0.0 0.0-0.1 10^3/uL Immature Granulocyte # (Auto) 0.1 0.0-0.1 10^3/uL OB - Assessment/Plan/Diagnosis Assessment Assessment: rupture of membranes (at term 39w1d) Admission Dx 1. IUP at term 39 weeks. Admission Status: Inpatient Order (span 2 midnights) Reason for Inpatient Admission: L&D Plan Plan: Expectant Management Other Plan -pitocin -desires epidural LZU LIND MD Sep 05, 2021 16:50
--- NOTE | 2021-09-05 16:53 | OB Labor & Delivery Record ---
L&D History Date of Service Date of Service: Sep 05, 2021 History Expected Date of Delivery: Sep 11, 2021 Gestational Age in Weeks: 39 Hx : 2 Hx Para: 2 Complications Events: Routine care Operative Indications (Cesarea: N/A-Vaginal Delivery Intrapartal Events: None Other Complications GBS negative 36 weeks L&D Stage1 Stage One Onset of Labor - Date: Sep 05, 2021 Onset of Labor - Time: 06:00 Monitors and Tracing Monitor Mode: External Heart Rate: 135 Monitor Accelerations: Uniform Station: -2 Residential Variability: Average (6-10) Short Term Variability: Present Presentation: Vertex Vital Signs VS - Last 72 Hours, by Label 09/05/21 09/05/21 09/05/21 09/05/21 08:14 08:15 08:21 09:00 Temp 36.5 36.5 36.2 Pulse 90 90 92 Resp 18 18 18 B/P (MAP) 133/76 (95) 129/75 (93) 124/75 (91) Pulse Ox 100 O2 Delivery Room Air Room Air Room Air 09/05/21 09/05/21 09/05/21 09/05/21 09:15 09:30 09:45 10:00 Pulse 93 87 85 79 Resp 18 18 18 18 B/P (MAP) 130/82 (98) 128/85 (99) 136/88 (104) 135/73 (93) O2 Delivery Room Air Room Air Room Air Room Air 09/05/21 09/05/21 09/05/21 09/05/21 10:15 10:30 10:45 11:00 Pulse 78 88 88 86 Resp 18 18 18 18 B/P (MAP) 129/80 (96) 133/81 (98) 134/82 (99) 124/81 (95) O2 Delivery Room Air Room Air Room Air Room Air 09/05/21 09/05/21 09/05/21 09/05/21 11:15 11:30 11:45 12:00 Pulse 83 96 82 80 Resp 18 18 18 18 B/P (MAP) 140/85 (103) 140/90 (107) 137/87 (104) 133/89 (104) O2 Delivery Room Air Room Air Room Air Room Air 09/05/21 09/05/21 09/05/21 09/05/21 12:12 12:15 12:20 12:25 Pulse 93 90 86 97 Resp 18 18 18 18 B/P (MAP) 142/84 (103) 138/81 (100) 136/79 (98) 133/82 (99) Pulse Ox 100 100 100 100 O2 Delivery Room Air Room Air Room Air Room Air 09/05/21 09/05/21 09/05/21 09/05/21 12:30 12:40 12:42 12:45 Temp 36.5 Pulse 86 112 93 97 Resp 18 18 18 18 B/P (MAP) 133/74 (93) 126/70 (88) 127/61 (83) 135/67 (89) Pulse Ox 100 100 100 100 O2 Delivery Room Air Room Air Room Air Room Air 09/05/21 09/05/21 09/05/21 09/05/21 12:50 12:52 13:00 13:05 Pulse 89 90 90 85 Resp 18 18 18 18 B/P (MAP) 127/68 (87) 125/67 (86) 121/60 (80) 113/59 (77) Pulse Ox 100 100 100 100 O2 Delivery Room Air Room Air Room Air Room Air 09/05/21 13:15 Pulse 88 Resp 18 B/P (MAP) 124/56 (78) Pulse Ox 97 O2 Delivery Room Air Signs of Distress by FHT Signs of Distress no Rupture of Membranes Spontaneous Ruture of Membrane: Yes Amniotic Membrane Rupture Time: 0600 Amniotic Membrane Fluid Desc.: Clear Vaginal Bleeding Description: None Induction/Anesthesia Epidural Cath Placement - Time: 1226 L&D Stage2 Stage Two Stage II Date: Sep 05, 2021 Stage II Time: 16:26 Monitors and Tracing Monitor Mode: External Heart Rate: 135 Monitor Accelerations: Uniform Monitor Decelerations: Variable Docent Coordinator Variability: Average (6-10) Short Term Variability: Present Position: Left Occiput Anterior Presentation: Vertex Signs of Distress by FHT Signs of Distress no Cord Descript/Complications Cord Vessel Description: 3 Vessels Delivery Type Delivery Method: Spontaneous Vaginal Anterior Shoulder: Left Episiotomy/Perineal Laceration Laceraction(s)/Extensions: No Condition of Infant Delivery 1 minute Comment: 7 5 minute Comment: 9 Condition of Infant Condition of Infant: Living Exam: No Observed Abnormalities Resuscitation Resuscitation: N/A - Spontaneous Resp L&D Stage3 Stage Three Stage III Date: Sep 05, 2021 Stage III Time: 16:32 Pictocin Pitocin Administration mu/min: 14 Pitocin ml/hr: 14 Pitocin Administration Comment: 1045 pitocin increased Placenta Delivery Placenta Delivery: Spontaneous Delivery Summary Summary Estimated blood loss (mL): 150 Condition of Delivery Examined: Cervix Examined Post Hemorrhage: No Intervention Required none LUZ LIND MD Sep 05, 2021 16:53
[2021-09-05] MEDS ORDERED: BENZOCAINE/MENTHOL (DERMOPLAST) 56 ML CAN TP PRN (17:00)
[2021-09-05] MEDS ORDERED: MEASLES,MUMPS,RUBELLA 1 EA INJ SQ ONE (17:00)
[2021-09-05] MEDS ORDERED: WITCH HAZEL(TUCKS) 40 EA JAR TOP PRN (17:00)
[2021-09-05] MEDS ORDERED: TETANUS,DIPTH,PERTUSS P/F (BOOSTRIX) 0.5 ML VIAL IM ONE (17:00)
[2021-09-05] MEDS ORDERED: LIDOCAINE/EPI 2% 1:200,00 (XYLOCAINE) 20 ML VIAL ONE (19:09)
[2021-09-05] MEDS ORDERED: OXYTOCIN PRE-MIX DRIP 500 ML IV ONE (19:09)
[2021-09-05] MEDS: IBUPROFEN 600 MG (MOTRIN) TAB PO SCH ×2 (20:12→23:12)
[2021-09-05] MEDS: DOCUSATE SODIUM 100 MG (COLACE) CAP PO SCH (21:18)
[2021-09-05] MEDS: ACETAMINOPHEN 500 MG TAB (TYLENOL) PO SCH (21:18)
[2021-09-05] MEDS: CATHETER FLUSH 10 ML SYR IV SCH (23:12)
[2021-09-06] VITALS: BP 110/54
[2021-09-06] MEDS: ACETAMINOPHEN 500 MG TAB (TYLENOL) PO SCH ×4 (01:10→12:50)
[2021-09-06 04:29] VITALS: BP 118/60
[2021-09-06] MEDS: IBUPROFEN 600 MG (MOTRIN) TAB PO SCH ×3 (05:38→15:47)
[2021-09-06] MEDS: CATHETER FLUSH 10 ML SYR IV SCH (05:39)
[2021-09-06 05:49] LABS: BASOPHILS % (AUTO) 0 % (0-10); EOSINOPHILS % (AUTO) 0 % (0-10); HEMATOCRIT 33 % (35-52); HEMOGLOBIN 11.1 g/dL (11.5-16.0); LYMPHOCYTES # (AUTO) 1.3 10^3/uL (1.0-4.0); LYMPHOCYTES % (AUTO) 12 % (12-44); MEAN CORPUSCULAR HEMOGLOBIN 30 pg (25-34); MEAN CORPUSCULAR HGB CONC 34 g/dL (32-36); MEAN CORPUSCULAR VOLUME 90 fL (80-99); MONOCYTES % (AUTO) 9 % (0-12); NEUTROPHILS # (AUTO) 8.9 10^3/uL (1.8-7.8); NEUTROPHILS % (AUTO) 79 % (42-75); PLATELET COUNT 168 10^3/uL (130-400); WHITE BLOOD COUNT 11.3 10^3/uL (4.3-11.0)
--- NOTE | 2021-09-06 07:27 | Discharge Summary ---
Diagnosis/Chief Complaint Date of Admission Sep 05, 2021 at 07:51 Date of Discharge Discharge Date: Sep 06, 2021 Admission Diagnosis Admission Diagnosis 1. Intrauterine at term 39 weeks Discharge Diagnosis 1. Intrauterine at term 39 weeks Reason Hospital Visit 25 yo G2 now T2 initially presented to labor and delivery in labor during the morning of September 05 and reported that her water had broken. She presented to women's services dilated to 3-4 cm. Her EDC is September 11, 2021. Her GBS status at 36 weeks was noted to be negative. Discharge Summary-OBS Procedures 1. Epidural per anesthesia 2. Spontaneous vaginal delivery Discharge Physical Examination Allergies: Coded Allergies: NKANo Known Allergies (Verified Allergy, Unknown, 12/03/06) Vitals & I&Os Vital Signs Date Time Temp Pulse Resp B/P (MAP) Pulse Ox O2 Delivery O2 Flow Rate FiO2 09/06/21 04:29 36.3 92 20 118/60 (79) Room Air 09/05/21 16:15 100 General Appearance: No Acute Distress Respiratory: Clear to Auscultation Cardiovascular: Regular Rate Abdominal: Soft (ith uterus firm) Hospital Course Was the Problem List Reviewed?: Yes Following admission she underwent labor course and ultimately went on to deliver a term viable male. See labor and delivery course for full details. Following delivery she underwent routine care orders. She had no complications during the remainder of hospital stay. Her hemoglobin on admission was noted to be 12.3 and on the day of dismissal 11.1. She was tolerating regular diet and had no issues with chest pain or shortness of breath. She was ambulatory and ready for dismissal during the afternoon of September 06, 2021. She will follow up in 6 weeks Pending Labs Laboratory Tests 09/06/21 05:27: White Blood Count 11.3, Red Blood Count 3.66, Hemoglobin 11.1, Hematocrit 33, Mean Corpuscular Volume 90, Mean Corpuscular Hemoglobin 30, Mean Corpuscular Hemoglobin Concent 34, Red Cell Distribution Width 14.4, Platelet Count 168, Mean Platelet Volume 11.0, Immature Granulocyte % (Auto) 1, Neutrophils (%) (Auto) 79, Lymphocytes (%) (Auto) 12, Monocytes (%) (Auto) 9, Eosinophils (%) (Auto) 0, Basophils (%) (Auto) 0, Neutrophils # (Auto) 8.9, Lymphocytes # (Auto) 1.3, Monocytes # (Auto) 1.0, Eosinophils # (Auto) 0.0, Basophils # (Auto) 0.0, Immature Granulocyte # (Auto) 0.1 Discharge Instructions to patient/family Please see electronic discharge instructions given to patient. Discharge Medications Reviewed and agree with Discharge Medication list on patient's Discharge Instruction sheet LUZ LIND MD Sep 06, 2021 07:26
[2021-09-06] MEDS ORDERED: IBUP-844 PO (07:28)
--- NOTE | 2021-09-06 07:29 | Discharge Inst-Women's Service ---
Discharge Inst-Women's Serv Depart Medication/Instructions New, Converted or Re-Newed RX: Transmitted to Pharmacy ([facility]) Problems Reviewed?: Yes Consults/Follow Up Additional Follow Up: Yes (Dr Lind in 6 weeks) Activity Activity: Activity as Tolerated Driving Instructions: No Driving for 1 Week Nothing Inside Vagina: No [place] (for 6 weeks) Diet Discharge Diet: Regular Diet Return to The Hospital For: as below Symptoms to Report to : Bleeding Excessive, Fever Over 101 Degrees F, V aginal Discharge Foul For Any Problems or Questions: Contact Your Physician LUZ LIND MD Sep 06, 2021 07:29
[2021-09-06 08:46] VITALS: BP 124/71
[2021-09-06] MEDS: DOCUSATE SODIUM 100 MG (COLACE) CAP PO SCH (08:50)
--- NOTE | 2021-09-06 11:07 | Anesthesia-Regional Post-Op ---
Regional Patient Condition Mental Status: Alert, Oriented x3 Circulation: Same as Pre-Op Headache: Absent Sensation: Full Recovery Motor Block: Absent Post Op Complications Complications None Follow Up Care/Instructions Patient Instructions None needed. Anesthesia/Patient Condition Patient is doing well, no complaints, stable vital signs, no apparent adverse anesthesia problems. No complications reported per nursing. TERRELL LAN CRNA Sep 06, 2021 11:07
[2021-09-06 12:46] VITALS: BP 108/54
[2021-09-06] MEDS ORDERED: TETANUS,DIPTH,PERTUSS P/F (BOOSTRIX) 0.5 ML VIAL IM ONE (13:58)
[2021-09-06 16:43] VITALS: BP 133/82
[2021-09-06 18:36] VITALS: BP 133/82
== END 2021-09-06 19:05 | disposition home or self-care (01) | DRG 807 ==
LOC: WSo 07:30 → LDRP 07:31 → WSo 07:51 → LDRP 07:51
PROVIDERS: ADMIT Family Medicine; ATTEND Family Medicine
PROC: 10E0XZZ Delivery of Products of Conception, External Approach (ICD-10-PCS; principal; 2021-09-05)
DX: O80 Encounter for full-term uncomplicated delivery (principal); Z37.0 Single live birth; Z3A.39 39 weeks gestation of pregnancy; Z23 Encounter for immunization
CPT/HCPCS: 36415; 85025; 86850; 86900; 86901; 90715

== ENCOUNTER 2023-06-07 10:16 | Emergency (ER) | payer MEDICAID ==
[~2023-06-07] VITALS: Ht 167 cm; Wt 78.0 kg
[~2023-06-07 10:16] MED LIST changes: +IBUP-844 PO; +PREN-37 PO
--- NOTE | 2023-06-07 10:48 | ED Abdominal Pain ---
General Chief Complaint: Abdominal/GI Problems Stated Complaint: AB PAIN Nursing Triage Note: PT AMB TO RM 6 PT CO OF ABD PAIN 7/10 R LOWER ABD, STARTED LAST PM. VOMITING AND DIARRHEA. PT ALSO CO OF PRESSURE ON RECTUM Source of Information: Patient Exam Limitations: No Limitations History of Present Illness Date Seen by Provider: Jun 07, 2023 Time Seen by Provider: 10:34 Initial Comments This 27-year-old young lady presents to the emergency room with complaints of generalized lower abdominal pain that is crampy in nature accompanied by vomiting and diarrhea. The discomfort started yesterday evening, and the vomiting and diarrhea began around 0400. She denies fever or chills. She describes her pain as "like bad gas pain." She describes an intense pressure in the rectal area and a sensation of rectal urgency. This is not worsened or alleviated by bowel movements. She denies any urinary symptoms such as frequency, dysuria, or hematuria. She denies any vaginal symptoms such as discharge or dyspareunia. LMP was May 25. She denies . Her primary care provider is Dr. Lind. Allergies and Home Medications Allergies Coded Allergies: Dru Known Allergies (Verified Allergy, Unknown, 12/03/06) Patient Home Medication List Home Medication List Reviewed: Yes Hyoscyamine Sulfate (Levsin-Sl) 0.125 Mg Tab.subl, 1-2 TAB SL Q4H PRN for CRAMPS Prescribed by: NOAH GALLARDO on 06/07/23 1326 Ibuprofen (Ibu) 600 Mg Tablet, 600 MG PO Q6H Prescribed by: LUZ LIND on 09/06/21 0728 Ondansetron (Ondansetron Odt) 4 Mg Tab.rapdis, 4 MG SL Q4H PRN for NAUSEA/VOMITING Prescribed by: NOAH GALLARDO on 06/07/23 1326 Vit/Iron Fumarate/FA ( Tablet) 1 Each Tablet, 1 EACH PO DAILY, (Reported) Entered as Reported by: BRENDON LEVI on 09/05/21 0854 Review of Systems Review of Systems Constitutional: no symptoms reported EENTM: No Symptoms Reported Respiratory: No Symptoms Reported Cardiovascular: No Symptoms Reported Gastrointestinal: See HPI Genitourinary: See HPI Musculoskeletal: no symptoms reported Skin: no symptoms reported Psychiatric/Neurological: No Symptoms Reported Endocrine: No Symptoms Reported Hematologic/Lymphatic: No Symptoms Reported Past Clbolms-Vzvvan-Xnwdni Hx Patient Social History Tobacco Use?: No Use of E-Cig and/or Vaping dev: No Substance use?: No Alcohol Use?: Yes Alcohol type: Wine Alcohol Frequency: Once in a while Immunizations Up To Date Tetanus Booster (TDap): Unknown First/Initial COVID19 Vaccinat: YES Second COVID19 Vaccination Win: YES Seasonal Allergies Seasonal Allergies: Yes Past Medical History Surgery/Hospitalization HX: DENIES Surgeries: No Respiratory: No Cardiac: No Neurological: No Last Menstrual Period: May 25, 2023 Reproductive Disorders: No Genitourinary: No Gastrointestinal: Yes (blood in stools) Musculoskeletal: No Endocrine: No HEENT: No Cancer: No Psychosocial: No Integumentary: No Blood Disorders: No Adverse Reaction/Blood Tranf: No Family Medical History Hypertension (Father) Physical Exam Vital Signs Vital Signs - First Documented 06/07/23 10:30 Temp 37.0 Pulse 80 Resp 16 B/P (MAP) 125/74 (91) Pulse Ox 100 Capillary Refill : Less Than 3 Seconds Height/Weight/BMI Height: 5'5.00" Weight: 183lbs. 0.0oz. 83.906609sf; 27.00 BMI Method:Stated General Appearance: WD/WN, mild distress HEENT: normal ENT inspection Neck: normal inspection Respiratory: lungs clear, normal breath sounds, no respiratory distress Cardiovascular: regular rate, rhythm, no edema, no murmur Gastrointestinal: normal bowel sounds, soft, tenderness (Mild in the lower abdomen) Rectal: normal exam, normal rectal tone, heme negative stool; No hemorrhoids, No mass; other (No significant pain or tenderness on exam) Extremities: normal inspection, no pedal edema Neurologic/Psychiatric: no motor/sensory deficits, alert, normal mood/affect, oriented x 3 Skin: normal color, warm/dry Progress/Results/Core Measures Results/Orders Lab Results Laboratory Tests Test 06/07/23 10:35 06/07/23 12:25 Range/Units White Blood Count 10.1 4.3-11.0 10^3/uL Red Blood Count 4.25 3.80-5.11 10^6/uL Hemoglobin 12.6 11.5-16.0 g/dL Hematocrit 37 35-52 % Mean Corpuscular Volume 87 80-99 fL Mean Corpuscular Hemoglobin 30 25-34 pg Mean Corpuscular Hemoglobin Concent 34 32-36 g/dL Red Cell Distribution Width 12.9 10.0-14.5 % Platelet Count 250 130-400 10^3/uL Mean Platelet Volume 10.3 9.0-12.2 fL Immature Granulocyte % (Auto) 0 % Neutrophils (%) (Auto) 88 H 42-75 % Lymphocytes (%) (Auto) 9 L 12-44 % Monocytes (%) (Auto) 3 0-12 % Eosinophils (%) (Auto) 0 0-10 % Basophils (%) (Auto) 0 0-10 % Neutrophils # (Auto) 8.9 H 1.8-7.8 10^3/uL Lymphocytes # (Auto) 0.9 L 1.0-4.0 10^3/uL Monocytes # (Auto) 0.3 0.0-1.0 10^3/uL Eosinophils # (Auto) 0.0 0.0-0.3 10^3/uL Basophils # (Auto) 0.0 0.0-0.1 10^3/uL Immature Granulocyte # (Auto) 0.0 0.0-0.1 10^3/uL Neutrophils % (Manual) 88 % Lymphocytes % (Manual) 11 % Monocytes % (Manual) 1 % Eosinophils % (Manual) 0 % Basophils % (Manual) 0 % Band Neutrophils 0 % Blood Morphology Comment NORMAL Sodium Level 139 135-145 MMOL/L Potassium Level 3.6 3.6-5.0 MMOL/L Chloride Level 107 98-107 MMOL/L Carbon Dioxide Level 22 21-32 MMOL/L Anion Gap 10 5-14 MMOL/L Blood Urea Nitrogen 7 7-18 MG/DL Creatinine 0.77 0.60-1.30 MG/DL Estimat Glomerular Filtration Rate 110 BUN/Creatinine Ratio 9 Glucose Level 114 H 70-105 MG/DL Calcium Level 9.5 8.5-10.1 MG/DL Corrected Calcium 8.5-10.1 MG/DL Total Bilirubin 0.4 0.1-1.0 MG/DL Aspartate Amino Transf (AST/SGOT) 14 5-34 U/L Alanine Aminotransferase (ALT/SGPT) 11 0-55 U/L Alkaline Phosphatase 44 40-136 U/L C-Reactive Protein High Sensitivity 0.02 0.00-0.50 MG/DL Total Protein 7.8 6.4-8.2 GM/DL Albumin 4.6 H 3.2-4.5 GM/DL Serum Test, Qualitative NEGATIVE NEGATIVE Urine Color YELLOW Urine Clarity CLEAR Urine pH 7.5 5-9 Urine Specific [place] 1.010 L 1.016-1.022 Urine Protein 2+ H NEGATIVE Urine Glucose (UA) NEGATIVE NEGATIVE Urine Ketones NEGATIVE NEGATIVE Urine Nitrite NEGATIVE NEGATIVE Urine Bilirubin NEGATIVE NEGATIVE Urine Urobilinogen 0.2 < = 1.0 MG/DL Urine Leukocyte Esterase NEGATIVE NEGATIVE Urine RBC (Auto) NEGATIVE NEGATIVE Urine RBC NONE /HPF Urine WBC 0-2 /HPF Urine Squamous Epithelial Cells 10-25 H /HPF Urine Crystals NONE /LPF Urine Bacteria NEGATIVE /HPF Urine Casts NONE /LPF Urine Mucus MODERATE H /LPF Urine Culture Indicated NO My Orders Orders - NOAH GOLDEN MD Cbc With Automated Diff (06/07/23 10:48) Comprehensive Metabolic Panel (06/07/23 10:48) Hs C Reactive Protein (06/07/23 10:48) Hcg,Qualitative Serum (06/07/23 10:48) Ua Culture If Indicated (06/07/23 10:48) Ondansetron Injection (Zofran Injectio (06/07/23 11:00) Hyoscyamine Sl Tablet (Levsin Sl Tablet) (06/07/23 11:00) Ed Iv/Invasive Line Start (06/07/23 10:58) Lactated Ringers (Lr 1000 Ml Iv Solution (06/07/23 11:00) Ondansetron Injection (Zofran Injectio (06/07/23 10:56) Manual Differential (06/07/23 10:35) Ketorolac Injection (Toradol Injection) (06/07/23 12:00) Iv Push [place] Maker Ed (06/07/23 ) Medications Given in ED Vital Signs/I&O 06/07/23 06/07/23 10:30 13:40 Temp 37.0 Pulse 80 68 Resp 16 16 B/P (MAP) 125/74 (91) 116/61 Pulse Ox 100 100 Blood Pressure Mean: 91 Departure Impression Primary Impression: Nausea vomiting and diarrhea Additional Impressions: Generalized abdominal pain Rectal pressure Disposition: 01 HOME, SELF-CARE Condition: Improved Departure-Patient Inst. Decision time for Depature: 13:18 Referrals: LUZ LIND MD (PCP/Family) Primary Care Physician Patient Instructions: Abdominal Pain, Adult ED, Viral Gastroenteritis, Adult (DC) Add. Discharge Instructions: Your symptoms are likely caused by a viral gastroenteritis. Adhere to a noncarbonated clear liquid diet today which would include water, sports drinks, Jell-O, chicken broth, etc. Late tonight or in the morning you may gradually advance your diet with small quantities of bland food as tolerated. This might include foods such as potato, white rice, crackers, toast, bananas, etc. Avoid fatty/greasy foods and dairy products until your diarrhea has been resolved for several days. You may use Tylenol (acetaminophen) up to 1000 mg every 6 hours as needed for pain. Use Zofran (ondansetron) as prescribed for nausea or vomiting. You may use Levsin (hyoscyamine) as prescribed for abdominal cramping or diarrhea. Return to the emergency room if you have worsening symptoms including escalating pain, uncontrolled vomiting, uncontrolled diarrhea, persistent fevers, etc. despite following these instructions. All discharge instructions reviewed with patient and/or family. Voiced understanding. Scripts Hyoscyamine Sulfate (Levsin-Sl) 0.125 Mg Tab.subl 1-2 TAB SL Q4H PRN for CRAMPS, #10 TAB 0 Refills For bowel cramping or diarrhea. Prov: NOAH GOLDEN MD 06/07/23 Ondansetron (Ondansetron Odt) 4 Mg Tab.rapdis 4 MG SL Q4H PRN for NAUSEA/VOMITING, #10 TAB Prov: NOAH GOLDEN MD 06/07/23 NOAH GOLDEN MD Jun 07, 2023 10:48
[2023-06-07 10:54] LABS: BASOPHILS % (AUTO) 0 % (0-10); EOSINOPHILS % (AUTO) 0 % (0-10); HEMATOCRIT 37 % (35-52); HEMOGLOBIN 12.6 g/dL (11.5-16.0); LYMPHOCYTES # (AUTO) 0.9 10^3/uL (1.0-4.0); LYMPHOCYTES % (AUTO) 9 % (12-44); MEAN CORPUSCULAR HEMOGLOBIN 30 pg (25-34); MEAN CORPUSCULAR HGB CONC 34 g/dL (32-36); MEAN CORPUSCULAR VOLUME 87 fL (80-99); MEAN PLATELET VOLUME 10.3 fL (9.0-12.2); MONOCYTES # (AUTO) 0.3 10^3/uL (0.0-1.0); MONOCYTES % (AUTO) 3 % (0-12); NEUTROPHILS # (AUTO) 8.9 10^3/uL (1.8-7.8); NEUTROPHILS % (AUTO) 88 % (42-75); PLATELET COUNT 250 10^3/uL (130-400); WHITE BLOOD COUNT 10.1 10^3/uL (4.3-11.0)
[2023-06-07] MEDS ORDERED: ONDANSETRON 4 MG/2 ML (SDV) Z0FRAN ONE (10:56)
[2023-06-07 10:59] LABS: ALBUMIN 4.6 GM/DL (3.2-4.5); CHLORIDE 107 MMOL/L (98-107); POTASSIUM 3.6 MMOL/L (3.6-5.0); SODIUM 139 MMOL/L (135-145)
[2023-06-07 11:00] LABS: CALCIUM 9.5 MG/DL (8.5-10.1)
[2023-06-07] MEDS ORDERED: HYOSCYAMINE 0.125 MG TABLET SL ONE (11:00)
[2023-06-07] MEDS ORDERED: ONDANSETRON 4 MG/2 ML (SDV) Z0FRAN IVP ONE (11:00)
[2023-06-07] MEDS ORDERED: LACTATED RINGERS 1,000 ML IV ONE (11:00)
[2023-06-07 11:01] LABS: GLUCOSE 114 MG/DL (70-105); TOTAL PROTEIN 7.8 GM/DL (6.4-8.2)
[2023-06-07 11:02] LABS: CARBON DIOXIDE 22 MMOL/L (21-32)
[2023-06-07 11:03] LABS: BILIRUBIN,TOTAL 0.4 MG/DL (0.1-1.0)
[2023-06-07 11:05] LABS: ALKALINE PHOSPHATASE 44 U/L (40-136); CREATININE SERUM 0.77 MG/DL (0.60-1.30); GFR ESTIMATED 110
[2023-06-07 11:06] LABS: BUN/CREATININE RATIO 9
[2023-06-07 11:08] LABS: ALANINE AMINOTRANSFERASE 11 U/L (0-55)
[2023-06-07 11:18] LABS: BAND NEUTROPHILS 0 %; BASOPHILS % (MANUAL) 0 %; EOSINOPHILS % (MANUAL) 0 %; LYMPHOCYTES % (MANUAL) 11 %; MONOCYTES % (MANUAL) 1 %; NEUTROPHILS % (MANUAL) 88 %; RBC MORPH NORMAL
[2023-06-07] MEDS ORDERED: KETOROLAC 30 MG/ML VIAL IVP ONE (12:00)
[2023-06-07 12:43] LABS: CLARITY,URINE CLEAR; COLOR,URINE YELLOW; GLUCOSE, URINE (UA) NEGATIVE (NEGATIVE); KETONES,URINE NEGATIVE (NEGATIVE); PH,URINE 7.5 (5-9); PROTEIN,URINE 2+ (NEGATIVE)
[2023-06-07 12:44] LABS: BACTERIA,URINE NEGATIVE /HPF; BILIRUBIN,URINE NEGATIVE (NEGATIVE); LEUKOCYTE ESTERASE ,URINE NEGATIVE (NEGATIVE); NITRITE,URINE NEGATIVE (NEGATIVE); WBC,URINE 0-2 /HPF
[2023-06-07] MEDS ORDERED: HYOS0.1283 SL (13:26)
[2023-06-07] MEDS ORDERED: ONDA4TAB11 SL (13:26)
[2023-06-07 13:40] VITALS: BP 116/61
== END 2023-06-07 13:40 | disposition home or self-care (01) ==
LOC: EDUNIT# 10:16 → ER 10:17
DX: R11.2 Nausea with vomiting, unspecified (principal); R19.7 Diarrhea, unspecified; R10.84 Generalized abdominal pain; K62.9 Disease of anus and rectum, unspecified
CPT/HCPCS: 36415; 80053; 81000; 82274; 84703; 85007; 85027; 86141; 96361; 96374; 96375